=== PATIENT | female | born 2000 | race Caucasian/White ===

== ENCOUNTER 2018-01-11 20:18 | Emergency (ER) | payer MEDICAID ==
[~2018-01-11] VITALS: Ht 165.1 cm; Wt 65.9 kg
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
[2018-01-11 20:26] VITALS: BP 159/104
--- NOTE | 2018-01-11 20:52 | NUR ---
Patient ambulated to chair C with family. RN evaluating patient.
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
[2018-01-11 21:50] LABS: BARBITURATE, URINE NEG. ng/ml (NEG <=200); BENZODIAZEPINE, URINE POS. ng/mL (NEG <=200); CANNABINOID, URINE POS. ng/mL (NEG <=50); COCAINE, URINE NEG. ng/mL (NEG <=300); OPIATE, URINE NEG. ng/mL (NEG <=2000); PHENCYCLIDINE SCREEN,URINE NEG. ng/mL (NEG <=25)
--- NOTE | 2018-01-11 22:10 | NUR ---
Dr. Fermin evaluating patient.
[2018-01-11] MEDS ORDERED: LORazepam 1 MG TAB PO ONE (22:35)
[2018-01-11] MEDS ORDERED: HALOPERIDOL IM 5 MG/ML VIAL IM ONE (22:35)
[2018-01-11] MEDS ORDERED: diphenhydrAMINE 50 MG/ML VIAL IM ONE (22:35)
[2018-01-11 23:55] VITALS: BP 98/70
--- NOTE | 2018-01-11 23:55 | NUR ---
Patient discharged with v/s stable. Written and verbal after care instructions given and explained. Patient alert, oriented and verbalized understanding of instructions. Wheel Chair Assisted with to car. All questions addressed prior to discharge. ID band removed. Patient advised to follow up with PMD. Rx of ATIVAN 2 MG given. Patient educated on indication of medication including possible reaction and side effects. Opportunity to ask questions provided and answered.
== END 2018-01-11 23:55 | disposition home or self-care (01) ==
LOC: MED 20:18
DX: F15.159 Other stimulant abuse with stimulant-induced psychotic disorder, unspecified (principal); F41.9 Anxiety disorder, unspecified; G47.00 Insomnia, unspecified; E28.2 Polycystic ovarian syndrome; K21.9 Gastro-esophageal reflux disease without esophagitis; F19.10 Other psychoactive substance abuse, uncomplicated
CPT/HCPCS: 80305; 81025; 96372; 99284; J1200; J1630

== ENCOUNTER 2018-01-26 17:50 | Emergency (ER) | payer MEDICAID ==
[~2018-01-26] VITALS: Ht 165.1 cm; Wt 62.6 kg
[2018-01-26 17:55] VITALS: BP 112/72
--- NOTE | 2018-01-26 18:15 | NUR ---
Nicky hernandez in [facility] - 01/26/18 at 1815 by [email or web address] RT AT BEDSIDE FOR BREATHING TREATMENT
--- NOTE | 2018-01-26 18:33 | NUR ---
17Y/F c/o sob, generalized abd pain, abd pain, dizziness s/p using epipen today x 30 mins ago. pt sts allergic to diary. no visible swelling to face, lips, or tongue. rr are even and unlabored. full speech.PATIENT POSITIONED FOR COMFORT; HOB ELEVATED; BEDRAILS UP X 1; BED DOWN. ER MD MADE AWARE OF PT STATUS.
[2018-01-26] MEDS ORDERED: LORATADINE 10 MG TAB PO ONE (18:45)
[2018-01-26] MEDS ORDERED: FAMOTIDINE 20 MG TAB PO ONE (18:45)
[2018-01-26] MEDS ORDERED: ONDANSETRON 4 MG ODT PO ONE (18:45)
--- NOTE | 2018-01-26 19:10 | NUR ---
Pt report given to abiola garcia . Transfer of care at this time.
[2018-01-26 21:01] VITALS: BP 106/76
--- NOTE | 2018-01-26 21:02 | NUR ---
Patient discharged with v/s stable. Written and verbal after care instructions given and explained. Patient alert, oriented and verbalized understanding of instructions. Ambulatory with steady gait. All questions addressed prior to discharge. ID band removed. Patient advised to follow up with PMD. Rx of PEPCID 40MG AND CLARITIN 10MG given. Patient educated on indication of medication including possible reaction and side effects. Opportunity to ask questions provided and answered.Pt left without discharge paperwork.
== END 2018-01-26 21:01 | disposition home or self-care (01) ==
LOC: MED 17:50
DX: S00.83XA Contusion of other part of head, initial encounter (principal); S80.212A Abrasion, left knee, initial encounter; T44.5X5A Adverse effect of predominantly beta-adrenoreceptor agonists, initial encounter; J45.909 Unspecified asthma, uncomplicated; Z98.890 Other specified postprocedural states; W01.0XXA Fall on same level from slipping, tripping and stumbling without subsequent striking against object, initial encounter; Y93.89 Activity, other specified; Y99.8 Other external cause status; Y92.89 Other specified places as the place of occurrence of the external cause
CPT/HCPCS: 99284; S0119

== ENCOUNTER 2018-02-12 18:21 | Emergency (ER) | payer MEDICAID ==
[~2018-02-12] VITALS: Ht 165.1 cm; Wt 67.1 kg
[2018-02-12 18:29] VITALS: BP 113/72
--- NOTE | 2018-02-12 18:30 | NUR ---
Patient ambulated to bed 7. RN evaluating patient at bedside.
--- NOTE | 2018-02-12 18:39 | NUR ---
Dr. Lawrence evaluating patient at bedside.
--- NOTE | 2018-02-12 18:40 | NUR ---
18Y/F BIB MOM C/O SOB , PARESTHESIA, AND HOT SENSATION S/P BEE STING ABOUT 1730HRS TODAY. MOTHER ADMINISTERED EPI PEN TO LEFT THIGH PT C/O SOB 1800HRS TODAY. FULL CLEAR SPEECH, NO TONGUE/LIP SWELLING NOTED, NO RASH THROUGHOUT BUT HAS A SMALL BUG BITE APPEARING AREA TO EPIGASTRIC REGION. PATIENT STATES PAIN OF 6/10 AT THIS TIME; VSS; PATIENT POSITIONED FOR COMFORT; HOB ELEVATED; BEDRAILS UP X1; BED DOWN. ER MD MADE AWARE OF PT STATUS.
[2018-02-12] MEDS ORDERED: NACL 0.9% 1,000 ML IV ONE (18:45)
[2018-02-12] MEDS ORDERED: methylPREDNISolone SS 125 MG/2 ML VIAL IVP ONE (18:45)
[2018-02-12] MEDS ORDERED: FAMOTIDINE 20 MG/2 ML VIAL IVP ONE (18:45)
[2018-02-12] MEDS ORDERED: ALBUTEROL SULFATE/IPRATROPIU 3 ML SOL IH ONE (18:45)
[2018-02-12] MEDS ORDERED: diphenhydrAMINE 50 MG/ML VIAL IVP ONE (18:45)
--- NOTE | 2018-02-12 18:53 | NUR ---
Breathing treatment administered by respiratory therapist at bedside.
--- NOTE | 2018-02-12 19:14 | NUR ---
GAVE REPORT TO GARRETT CHANEY
[2018-02-12] MEDS ORDERED: KETOROLAC 30 MG/ML VIAL IVP ONE (20:10)
[2018-02-12 20:42] VITALS: BP 113/72
--- NOTE | 2018-02-12 20:42 | NUR ---
Patient discharged with v/s stable, without SOB or Dyspnea. Written and verbal after care instructions given and explained. Patient alert, oriented and verbalized understanding of instructions. Ambulatory with steady gait. All questions addressed prior to discharge. ID band removed. Patient advised to follow up with PMD. Rx of Epinephrine Injector, Albuterol INH, Famotidine, Atarax given. Patient educated on indication of medication including possible reaction and side effects. Opportunity to ask questions provided and answered.
== END 2018-02-12 20:42 | disposition home or self-care (01) ==
LOC: MED 18:21
DX: T63.441A Toxic effect of venom of bees, accidental (unintentional), initial encounter (principal); T78.2XXA Anaphylactic shock, unspecified, initial encounter; X58.XXXA Exposure to other specified factors, initial encounter; J45.909 Unspecified asthma, uncomplicated; F32.9 Major depressive disorder, single episode, unspecified; F41.9 Anxiety disorder, unspecified; Z91.011 Allergy to milk products; Z88.8 Allergy status to other drugs, medicaments and biological substances
CPT/HCPCS: 94640; 96361; 96374; 96375; 99284; J1200; J1885; J2930; J7030; J7620

== ENCOUNTER 2018-02-21 04:15 | Emergency (ER) | payer MEDICAID ==
[~2018-02-21] VITALS: Ht 165.1 cm; Wt 63.5 kg
[2018-02-21 04:18] VITALS: BP 127/77
[2018-02-21] MEDS ORDERED: HALOPERIDOL IM 5 MG/ML VIAL ONE (04:56)
[2018-02-21] MEDS: HALOPERIDOL IM 5 MG/ML VIAL IM ONE (04:58)
[2018-02-21 05:28] VITALS: BP 125/75
== END 2018-02-21 05:30 | disposition home or self-care (01) ==
LOC: MED 04:15
DX: G47.00 Insomnia, unspecified (principal); N12 Tubulo-interstitial nephritis, not specified as acute or chronic; F17.210 Nicotine dependence, cigarettes, uncomplicated; J45.909 Unspecified asthma, uncomplicated; F41.9 Anxiety disorder, unspecified; Z91.011 Allergy to milk products; Z88.8 Allergy status to other drugs, medicaments and biological substances
CPT/HCPCS: 81002; 81025; 96372; 99283; J1630

== ENCOUNTER 2018-03-07 16:36 | Emergency (ER) | payer MEDICAID ==
[~2018-03-07] VITALS: Ht 167.6 cm; Wt 72.6 kg
[2018-03-07 16:44] VITALS: BP 111/85
--- NOTE | 2018-03-07 16:52 | NUR ---
PT AMBULATES TO BED 9
--- NOTE | 2018-03-07 17:00 | NUR ---
pt. came into the ed w/ boyfriend w/ c/o NOT BEING ABLE TO SLEEP FOR 2 DAYS AND ANXIETY. PT. IS AAOX4, RR EVEN AND UNLABORED. PT STATES " I HAVE NOT BEEN ABLE TO SLEEP FOR 2 DAYS, THEY TOLD ME I MIGHT HAVE BIPOLAR DISORDER BUT NEEDED TO SEE MY PRIMARY". PT. DENIES V/D BUT DOES STATE SHE WAS NAUSEOUS YESTERDAY. PT. SEEMS ANXIOUS AND JITTERY BUT ABLE TO FOLLOW COMMANDS. ER MD NOTIFIED. WILL TYLERUE TO MONITOR
[2018-03-07 17:38] VITALS: BP 111/85
--- NOTE | 2018-03-07 17:38 | NUR ---
Patient discharged with v/s stable. Written and verbal after care instructions given and explained. Patient alert, oriented and verbalized understanding of instructions. Ambulatory with steady gait. All questions addressed prior to discharge. ID band removed. Patient advised to follow up with PMD. Rx of YENY given. Patient educated on indication of medication including possible reaction and side effects. Opportunity to ask questions provided and answered.
== END 2018-03-07 17:38 | disposition home or self-care (01) ==
LOC: MED 16:36
DX: G47.00 Insomnia, unspecified (principal); F41.9 Anxiety disorder, unspecified; J45.909 Unspecified asthma, uncomplicated; F17.210 Nicotine dependence, cigarettes, uncomplicated; Z88.8 Allergy status to other drugs, medicaments and biological substances; Z91.011 Allergy to milk products
CPT/HCPCS: 81002; 81025; 99283

== ENCOUNTER 2018-03-08 03:08 | Emergency (ER) | payer MEDICAID ==
[~2018-03-08] VITALS: Ht 165.1 cm; Wt 72.6 kg
[2018-03-08 03:12] VITALS: BP 118/60
--- NOTE | 2018-03-08 03:19 | NUR ---
TO BED # 5 AMBULATORY, REPORT GIVEN TO DARELL TUCKER.
--- NOTE | 2018-03-08 03:20 | NUR ---
ASSUMED CARE OF PT AT THIS TIME. C/O INSOMNIA AND ANXIETY. PT SEEN YESTERDAY FOR SAME COMPLAINT AND RX'D AMBIEN FOR SLEEP. AAOX4 WITH EVEN AND STEADY GAIT; PATIENT STATES PAIN OF 0/10 AT THIS TIME; VSS; PATIENT POSITIONED FOR COMFORT; HOB ELEVATED; BEDRAILS UP X2; BED DOWN. ER MD MADE AWARE OF PT STATUS. WILL CONTINUE TO MONITOR.
[2018-03-08] MEDS ORDERED: diphenhydrAMINE 50 MG/ML VIAL IM ONE (03:50)
[2018-03-08 04:25] VITALS: BP 110/64
--- NOTE | 2018-03-08 04:25 | NUR ---
Patient discharged with v/s stable. Written and verbal after care instructions given and explained. Patient verbalized understanding. Ambulatory with steady gait. All questions addressed prior to discharge. Advised to follow up with PMD.
== END 2018-03-08 04:25 | disposition home or self-care (01) ==
LOC: MED 03:08
DX: G47.00 Insomnia, unspecified (principal); J45.909 Unspecified asthma, uncomplicated; Z88.8 Allergy status to other drugs, medicaments and biological substances; Z91.011 Allergy to milk products
CPT/HCPCS: 96372; 99283; J1200

== ENCOUNTER 2018-03-08 21:02 | Emergency (ER) | payer MEDICAID ==
[~2018-03-08] VITALS: Ht 165.1 cm; Wt 74.8 kg
[2018-03-08 21:21] VITALS: BP 129/90
[2018-03-08 21:24] VITALS: BP 129/90
--- NOTE | 2018-03-08 21:24 | NUR ---
TO LOBBY A/W BED, JUANJOSE COBURN, FATOU NOTED
--- NOTE | 2018-03-08 23:25 | NUR ---
PATIENT CALLLED TO PUT ON BED, NO RESPONSE, TO CALL HER BACK AGAIN.
--- NOTE | 2018-03-08 23:30 | NUR ---
CALLED FOR THE SECOND TIME, NO RESPONSE TO CALL HER BACK AGAIN.
--- NOTE | 2018-03-08 23:35 | NUR ---
PATIENT CALLED FOR THE THIRD TIME NO RESPONSE.PATIENT LEFT WITHOUT BEING SEEN BY DR. FLETCHER.. NO FURTHER CARE PROVIDED FOR PATIENT.
== END 2018-03-08 23:35 | disposition left against medical advice (07) ==
LOC: MED 21:02
DX: F41.9 Anxiety disorder, unspecified (principal); Z53.21 Procedure and treatment not carried out due to patient leaving prior to being seen by health care provider

== ENCOUNTER 2018-03-17 09:34 | Emergency (ER) | payer MEDICAID ==
[~2018-03-17] VITALS: Ht 165.1 cm; Wt 61.2 kg
[2018-03-17 09:44] VITALS: BP 123/83
[2018-03-17] MEDS ORDERED: OLANZapine 5 MG TAB PO STA (11:40)
[2018-03-17 12:20] LABS: BASOPHILS # (AUTO) 0.1 K/uL (0.00-0.22); EOSINOPHILS # (AUTO) 0.1 K/uL (0-0.4); EOSINOPHILS % (AUTO) 1.1 % (0.0-4.0); HEMATOCRIT 46.5 % (36-48); HEMOGLOBIN 16.2 g/dL (12.0-16.0); LYMPHOCYTES # (AUTO) 1.8 K/uL (2.5-16.5); LYMPHOCYTES % (AUTO) 21.5 % (20.5-51.1); MEAN CORPUSCULAR HEMOGLOBIN 30 pg (27-31); MEAN CORPUSCULAR HGB CONC 35 g/dL (33-37); MEAN CORPUSCULAR VOLUME 84.9 fL (80-94); MONOCYTES # (AUTO) 0.4 K/uL (0.8-1.0); MONOCYTES % (AUTO) 5.3 % (1.7-9.3); NEUTROPHILS % (AUTO) 71.1 % (42.2-75.2); PLATELET COUNT (AUTO) 379 K/uL (140-450); RED BLOOD CELL COUNT(AUTO) 5.48 MIL/uL (4.20-5.40); WHITE BLOOD COUNT (AUTO) 8.5 K/uL (4.5-11.0)
[2018-03-17 12:37] LABS: ANION GAP 12.6 (8-16); CARBON DIOXIDE 30.3 mmol/L (21-32); CHLORIDE 104 mmol/L (98-107); CREATININE 0.9 mg/dL (0.6-1.3); GFR ARICAN-AMERICAN 103 mL/min (>90); GLUCOSE 87 mg/dL (74-106); POTASSIUM 3.9 mmol/L (3.5-5.1); SODIUM SERUM 143 mmol/L (136-145); UREA NITROGEN, BLOOD 10 mg/dL (7-18)
[2018-03-17 12:50] LABS: APPEARANCE,URINE CLEAR (CLEAR); BILIRUBIN,URINE NEGATIVE (NEGATIVE); BLOOD, URINE NEGATIVE (NEGATIVE); LEUKOCYTE ESTERASE ,URINE NEGATIVE (NEGATIVE); NITRITE, URINE NEGATIVE (NEGATIVE); PH,URINE 7.5 (5.0-9.0); UGLUCOSE NEGATIVE (NEGATIVE)
[2018-03-17 12:52] LABS: ALBUMIN 4.3 g/dL (3.4-5.0); ASPARTATE AMINOTRANSFERASE 14 U/L (15-37); FREE T4 (FREE THYROXINE) 0.89 ng/dL (0.76-1.46); THYROID STIMULATING HORMONE 1.38 uIU/mL (0.34-3.74); TOTAL BILIRUBIN 0.3 mg/dL (0.0-1.0)
[2018-03-17 12:54] LABS: ACETAMINOPHEN < 0.5 ug/ml (10-30); SALICYLATE < 2.8 mg/dL (2.8-20.0)
[2018-03-17 12:55] LABS: COLOR,URINE STRAW (YELLOW)
[2018-03-17 13:00] LABS: BARBITURATE, URINE NEG. ng/ml (NEG <=200); BENZODIAZEPINE, URINE POS. ng/mL (NEG <=200); CANNABINOID, URINE POS. ng/mL (NEG <=50); COCAINE, URINE NEG. ng/mL (NEG <=300); OPIATE, URINE NEG. ng/mL (NEG <=2000); PHENCYCLIDINE SCREEN,URINE NEG. ng/mL (NEG <=25)
[2018-03-17 14:35] VITALS: BP 120/74
== END 2018-03-17 14:35 | disposition home or self-care (01) ==
LOC: MED 09:34
DX: G47.00 Insomnia, unspecified (principal); F29 Unspecified psychosis not due to a substance or known physiological condition; F12.10 Cannabis abuse, uncomplicated; J45.909 Unspecified asthma, uncomplicated; F41.9 Anxiety disorder, unspecified; F32.9 Major depressive disorder, single episode, unspecified; F17.200 Nicotine dependence, unspecified, uncomplicated; Z88.8 Allergy status to other drugs, medicaments and biological substances; Z91.011 Allergy to milk products
CPT/HCPCS: 36415; 80053; 80305; 81003; 81025; 84439; 84443; 84479; 85025; 99284; G0480; G0482

== ENCOUNTER 2018-05-26 16:13 | Emergency (ER) | payer MEDICAID ==
[~2018-05-26] VITALS: Ht 165.1 cm; Wt 62.6 kg
[2018-05-26 16:17] VITALS: BP 148/71
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
[2018-05-26] MEDS ORDERED: ALBUTEROL 0.083% 2.5 MG/3 ML NEBU INH ONE (16:40)
[2018-05-26] MEDS ORDERED: predniSONE 20 MG TAB PO ONE (16:40)
[2018-05-26] MEDS ORDERED: ALBUTEROL SULFATE/IPRATROPIU 3 ML SOL IH ONE (16:40)
--- NOTE | 2018-05-26 16:53 | NUR ---
RT AT BEDSIDE Addendum: 05/26/18 at 1700 by MNCATHERINEKM ADMINISTERING BREATHING TREATMENT; TOLERATING WELL.
--- NOTE | 2018-05-26 17:50 | NUR ---
PT STATES SHE IS BREATHING EASIER AND IS "FEELING BETTER". THROAT STILL SWOLLEN ON LEFT SIDE UPON OBERVATION. RR 24, NO SOB, CLEAR LUNG SOUNDS. WILL CONTINUE TO MONITOR
--- NOTE | 2018-05-26 18:38 | NUR ---
SPOKE WITH DR KIMBLE ABOUT PATIENT WANTING TO BE DISCHARGED. HE STATED HE WOULD SEE THE PATIENT SHORTLY. TOLD THE PATIENT THAT THE DOCTOR WOULD BE IN TO SEE HER SHORTLY SHE STATED UNDERSTANDING.
--- NOTE | 2018-05-26 19:00 | NUR ---
DR MAKI AT BEDSIDE.
--- NOTE | 2018-05-26 19:10 | NUR ---
Pt report given to ELLE. Transfer of care at this time. PT STABLE AT THIS TIME.
--- NOTE | 2018-05-26 19:12 | NUR ---
PATIENT RESTING AT THIS TIME. NO SIGNS OF DISTRESS.
--- NOTE | 2018-05-26 19:20 | NUR ---
STREP SWAB COLLECTED AND SENT TO LAB.
--- NOTE | 2018-05-26 20:47 | NUR ---
Dr. Hernandez re-evaluating patient at bedside.
[2018-05-26 20:50] VITALS: BP 128/62
--- NOTE | 2018-05-26 20:50 | NUR ---
Patient discharged with v/s stable. Written and verbal after care instructions given and explained. Patient alert, oriented and verbalized understanding of instructions. Ambulatory with steady gait. All questions addressed prior to discharge. ID band removed. Patient advised to follow up with PMD. Rx of DIPHENHYDRAMINE 25MG, PREDNISONE 50MG, PEPCID 20MG, EPIPEN 2PACK, AMOXICILLIN 500MG given. Patient educated on indication of medication including possible reaction and side effects. Opportunity to ask questions provided and answered.
== END 2018-05-26 20:50 | disposition home or self-care (01) ==
LOC: MED 16:13
DX: T78.40XA Allergy, unspecified, initial encounter (principal); J02.9 Acute pharyngitis, unspecified; J45.909 Unspecified asthma, uncomplicated; F19.10 Other psychoactive substance abuse, uncomplicated; Z88.8 Allergy status to other drugs, medicaments and biological substances; X58.XXXA Exposure to other specified factors, initial encounter
CPT/HCPCS: 81002; 81025; 87081; 99283; J7512; J7613; J7620

== ENCOUNTER 2018-05-29 03:21 | Emergency (ER) | payer MEDICAID ==
[~2018-05-29] VITALS: Ht 165.1 cm; Wt 72.6 kg
[2018-05-29 03:28] VITALS: BP 138/90
--- NOTE | 2018-05-29 03:28 | NUR ---
TO BED # 7 AMBULATORY, REPORT GIVEN TO BERNADINE TUCKER
--- NOTE | 2018-05-29 03:35 | NUR ---
Dr. Stephenson evaluating patient at bedside.
--- NOTE | 2018-05-29 03:39 | NUR ---
18/F CAME IN ED WITH FRIEND, C/O INSOMNIA X2 NIGHTS. PT WAS RECENTLY EVALUATED IN ER FOR ALLERGIC REACTION AND STREP THROAT, WAS GIVEN RX PREDNISONE. PT REPORTS 8/10 DULL THROAT PAIN. LUNG SOUNDS CLEAR BL. AIRWAY PATENT, RR EVEN AND UNLABORED. PT REPORTS ANXIETY. REPORTS ASSOCIATED HALLUCINATIONS. HX ASTHMA, POS, ANXIETY, DEPRESSION, SMOKING, ALCOHOL/SUBSTANCE ABUSE. ER MD AT BEDSIDE TO EVALUATE PT.
[2018-05-29 03:48] VITALS: BP 138/90
== END 2018-05-29 03:48 | disposition home or self-care (01) ==
LOC: MED 03:21
DX: G47.00 Insomnia, unspecified (principal); J02.9 Acute pharyngitis, unspecified; J45.909 Unspecified asthma, uncomplicated; F17.200 Nicotine dependence, unspecified, uncomplicated; Z88.8 Allergy status to other drugs, medicaments and biological substances
CPT/HCPCS: 99283

== ENCOUNTER 2018-05-29 08:14 | Emergency (ER) | payer MEDICAID ==
[~2018-05-29] VITALS: Ht 165.1 cm; Wt 70.0 kg
[2018-05-29 08:25] VITALS: BP 144/98
--- NOTE | 2018-05-29 08:32 | NUR ---
Patient ambulated to bed 4 with family. RN evaluating patient at bedside.
--- NOTE | 2018-05-29 08:33 | NUR ---
REPORT GIVEN TO GARRETT LORENZ
--- NOTE | 2018-05-29 08:41 | NUR ---
Dr. Jarvis evaluating patient at bedside.
--- NOTE | 2018-05-29 08:41 | NUR ---
18YO F BIB FRIEND WITH C/O ANXIETY, VISUAL HALUCINATION "I'M SEEING CLEAR ALIGATORS, BITING SOUNDS, I'M SCARED", " I KNOW IT IS NOT REAL". ONLY SLEEPING 2 TO 3 HOURS THE LAST 2 DAYS; WAS SEEN EARLIER TODAY FOR INSOMNIA. RX WAS FILLED. AAOX4. RR EVEN AND UNLABORED, LS CLEAR THROUGHOUT. ABD SOFT AND NON TENDER. ER MD MADE AWARE. CALL LIGHT WITHIN REACH. PT BOSITIONED FOR COMFORT HX; ASTHMA, CHRONIC COLITIS RX; PREDNISONE
--- NOTE | 2018-05-29 08:52 | NUR ---
Patient being evaluated by physician at bedside.
[2018-05-29] MEDS ORDERED: HALOPERIDOL IM 5 MG/ML VIAL IM ONE (08:55)
--- NOTE | 2018-05-29 09:30 | NUR ---
PT DENIES ANY HALLUSINATIONS AT THIS TIME. PT RESTING WITH EYES CLOSED IN NO APPEARENT DISTRESS
[2018-05-29 10:12] VITALS: BP 140/86
--- NOTE | 2018-05-29 10:12 | NUR ---
Patient discharged with v/s stable. Written and verbal after care instructions given and explained. Patient verbalized understanding. Wheel Chair Assisted with to car. All questions addressed prior to discharge. Advised to follow up with PMD.
== END 2018-05-29 10:12 | disposition home or self-care (01) ==
LOC: MED 08:14
DX: F23 Brief psychotic disorder (principal); G47.00 Insomnia, unspecified; F32.9 Major depressive disorder, single episode, unspecified; F41.9 Anxiety disorder, unspecified; J45.909 Unspecified asthma, uncomplicated; F17.200 Nicotine dependence, unspecified, uncomplicated; Z88.8 Allergy status to other drugs, medicaments and biological substances
CPT/HCPCS: 96372; 99284; J1630

== ENCOUNTER 2018-06-23 04:53 | Emergency (ER) | payer MEDICAID ==
[~2018-06-23] VITALS: Ht 165.1 cm; Wt 70.3 kg
[2018-06-23 04:58] VITALS: BP 148/90
--- NOTE | 2018-06-23 04:58 | NUR ---
TO BED # 7 AMBULATORY, REPORT GIVEN TO JOSEPH TUCKER
--- NOTE | 2018-06-23 05:06 | NUR ---
18 Y/O F W/C/O INSOMNIA X 6 HOURS PER PT. PT DENIES N/V/D; SKIN IS INTACT, PINK/WARM/DRY; AAOX4, PERRL, WITH EVEN AND STEADY GAIT; LUNGS CLEAR BL, BREATHING UNLABORED; HR EVEN AND REGULAR, BL PERIPHERAL PULSES PRESENT; BS ACTIVE X4, NO TENDERNESS TO PALPATION, NO HEPATOSPLENOMEGALLY PALPATED, RESONANT TO PERCUSSION; PT DENIES ANY FEVER, CP, SOB, AT THIS TIME; PT STATES 0/10 PAIN AT THIS TIME; VSS; PATIENT POSITIONED FOR COMFORT; HOB ELEVATED; BEDRAILS UP X2; BED DOWN.
--- NOTE | 2018-06-23 05:07 | NUR ---
DR. DAILEY AT BEDSIDE EVALUATING
[2018-06-23] MEDS ORDERED: HALOPERIDOL IM 5 MG/ML VIAL IM ONE (05:10)
--- NOTE | 2018-06-23 05:45 | NUR ---
PT RESTING COMFORTABLY IN BED WITH BOYFRIEND AT BEDSIDE
[2018-06-23 06:18] VITALS: BP 15/85
== END 2018-06-23 06:19 | disposition home or self-care (01) ==
LOC: MED 04:53
DX: G47.00 Insomnia, unspecified (principal); R50.9 Fever, unspecified; R11.0 Nausea; F12.10 Cannabis abuse, uncomplicated; J45.909 Unspecified asthma, uncomplicated; Z88.8 Allergy status to other drugs, medicaments and biological substances
CPT/HCPCS: 96372; 99283; J1630

== ENCOUNTER 2018-08-06 12:07 | Emergency (ER) | payer MEDICAID ==
[~2018-08-06] VITALS: Ht 165.1 cm; Wt 62.6 kg
[2018-08-06 12:16] VITALS: BP 140/90
[2018-08-06] MEDS: diphenhydrAMINE 50 MG/ML VIAL IM ONE (15:15)
[2018-08-06] MEDS: HALOPERIDOL IM 5 MG/ML VIAL IM ONE (15:16)
[2018-08-06 15:19] LABS: BASOPHILS # (AUTO) 0.1 K/uL (0.00-0.22); BASOPHILS % (AUTO) 1.3 % (0.0-2.0); EOSINOPHILS # (AUTO) 0.1 K/uL (0-0.4); EOSINOPHILS % (AUTO) 0.6 % (0.0-4.0); HEMATOCRIT 45.1 % (36-48); HEMOGLOBIN 15.2 g/dL (12.0-16.0); LYMPHOCYTES # (AUTO) 2.1 K/uL (2.5-16.5); LYMPHOCYTES % (AUTO) 23.2 % (20.5-51.1); MEAN CORPUSCULAR HEMOGLOBIN 29 pg (27-31); MEAN CORPUSCULAR HGB CONC 34 g/dL (33-37); MEAN CORPUSCULAR VOLUME 86.5 fL (80-94); MONOCYTES # (AUTO) 0.7 K/uL (0.8-1.0); MONOCYTES % (AUTO) 7.5 % (1.7-9.3); NEUTROPHILS % (AUTO) 67.4 % (42.2-75.2); PLATELET COUNT (AUTO) 353 K/uL (140-450); RED BLOOD CELL COUNT(AUTO) 5.22 MIL/uL (4.20-5.40); RED CELL DISTRIBUTION WIDTH 14.6 % (11.6-13.7)
[2018-08-06 15:58] LABS: BARBITURATE, URINE NEG. ng/ml (NEG <=200); BENZODIAZEPINE, URINE POS. ng/mL (NEG <=200); CANNABINOID, URINE POS. ng/mL (NEG <=50); COCAINE, URINE NEG. ng/mL (NEG <=300); OPIATE, URINE NEG. ng/mL (NEG <=2000); PHENCYCLIDINE SCREEN,URINE NEG. ng/mL (NEG <=25)
[2018-08-06 16:01] LABS: ANION GAP 15.9 (8-16); CARBON DIOXIDE 26.1 mmol/L (21-32); CHLORIDE 103 mmol/L (98-107); GFR ARICAN-AMERICAN 91 mL/min (>90); GLUCOSE 84 mg/dL (74-106); SODIUM SERUM 141 mmol/L (136-145); UREA NITROGEN, BLOOD 10 mg/dL (7-18)
[2018-08-06 16:06] LABS: ALBUMIN 4.2 g/dL (3.4-5.0); ASPARTATE AMINOTRANSFERASE 17 U/L (15-37); TOTAL BILIRUBIN 0.7 mg/dL (0.0-1.0)
[2018-08-06 16:07] LABS: SALICYLATE < 2.8 mg/dL (2.8-20.0)
[2018-08-06 16:08] LABS: ACETAMINOPHEN < 0.5 ug/ml (10-30)
[2018-08-06 16:15] LABS: APPEARANCE,URINE CLEAR (CLEAR)
[2018-08-06 16:16] LABS: BILIRUBIN,URINE NEGATIVE (NEGATIVE); BLOOD, URINE NEGATIVE (NEGATIVE); COLOR,URINE YELLOW (YELLOW); NITRITE, URINE NEGATIVE (NEGATIVE); PH,URINE 7.5 (5.0-9.0); UGLUCOSE NEGATIVE (NEGATIVE)
[2018-08-06 16:17] LABS: LEUKOCYTE ESTERASE ,URINE 1+ (NEGATIVE)
[2018-08-06 16:32] LABS: RBC,URINE 0-5 (RARE) /HPF (0-5)
[2018-08-06 19:00] VITALS: BP 112/61
== END 2018-08-06 19:00 | disposition home or self-care (01) ==
LOC: MED 12:07
DX: F25.0 Schizoaffective disorder, bipolar type (principal); G47.00 Insomnia, unspecified; J45.909 Unspecified asthma, uncomplicated; Z88.8 Allergy status to other drugs, medicaments and biological substances
CPT/HCPCS: 36415; 80053; 80305; 81001; 81025; 85025; 87086; 87186; 96372; 99284; G0480; G0482; J1200; J1630

== ENCOUNTER 2018-08-18 19:23 | Emergency (ER) | payer MEDICAID ==
[~2018-08-18] VITALS: Ht 165.1 cm; Wt 65.8 kg
[2018-08-18 19:25] VITALS: BP 117/88
[2018-08-18] MEDS ORDERED: FAMOTIDINE 20 MG TAB PO ONE (19:40)
[2018-08-18 20:54] VITALS: BP 120/87
== END 2018-08-18 20:54 | disposition home or self-care (01) ==
LOC: MED 19:23
DX: T78.2XXA Anaphylactic shock, unspecified, initial encounter (principal); J45.909 Unspecified asthma, uncomplicated; F17.210 Nicotine dependence, cigarettes, uncomplicated; Z88.8 Allergy status to other drugs, medicaments and biological substances
CPT/HCPCS: 99282; 99283

== ENCOUNTER 2018-08-31 19:24 | Emergency (ER) | payer MEDICAID ==
[~2018-08-31] VITALS: Ht 165.1 cm; Wt 62.6 kg
[2018-08-31 19:31] VITALS: BP 125/80
[2018-08-31] MEDS ORDERED: diphenhydrAMINE 50 MG/ML VIAL IM ONE (19:55)
[2018-08-31 20:51] LABS: BARBITURATE, URINE NEG. ng/ml (NEG <=200); BENZODIAZEPINE, URINE POS. ng/mL (NEG <=200); CANNABINOID, URINE POS. ng/mL (NEG <=50); COCAINE, URINE NEG. ng/mL (NEG <=300); OPIATE, URINE NEG. ng/mL (NEG <=2000); PHENCYCLIDINE SCREEN,URINE NEG. ng/mL (NEG <=25)
[2018-08-31 20:52] LABS: APPEARANCE,URINE CLEAR (CLEAR); BILIRUBIN,URINE NEGATIVE (NEGATIVE); BLOOD, URINE TRACE-I (NEGATIVE); COLOR,URINE YELLOW (YELLOW); LEUKOCYTE ESTERASE ,URINE TRACE (NEGATIVE); NITRITE, URINE POSITIVE (NEGATIVE); UGLUCOSE NEGATIVE (NEGATIVE)
[2018-08-31 21:07] LABS: RBC,URINE 0-5 (RARE) /HPF (0-5); WBC,URINE 0-5 (RARE) /HPF (0-5)
[2018-08-31] MEDS ORDERED: HALOPERIDOL IM 5 MG/ML VIAL IM ONE (21:30)
[2018-08-31 21:55] VITALS: BP 153/106
== END 2018-08-31 21:55 | disposition home or self-care (01) ==
LOC: MED 19:24
DX: G47.00 Insomnia, unspecified (principal); F19.10 Other psychoactive substance abuse, uncomplicated; J45.909 Unspecified asthma, uncomplicated; F12.10 Cannabis abuse, uncomplicated; Z88.8 Allergy status to other drugs, medicaments and biological substances
CPT/HCPCS: 80305; 81001; 81025; 87086; 96372; 99283; J1200; J1630

== ENCOUNTER 2018-10-08 22:18 | Emergency (ER) | payer MEDICAID ==
[~2018-10-08] VITALS: Ht 165.1 cm; Wt 71.7 kg
[2018-10-08 22:25] VITALS: BP 126/77
--- NOTE | 2018-10-08 22:33 | NUR ---
PT AMBULATED TO BED 12 WITH VSS.
--- NOTE | 2018-10-08 23:00 | NUR ---
PT BIB SELF FOR ALLERGIC REACTION. PT REPORTS FEELING SOB. RR SYMMETRICAL, NON-LABORED, BREATH SOUNDS CLEAR THROUGHOUT, O2 SAT AT 99%. PT REPORTS ALLERGY TO DAIRRY AND STATES THAT SHE MIGHT HAVE EATIN FOOD WITH DAIRY RODUCTS. NO ANGIOEDEMA OR NO HIVES PRESENT. VSS. ER MD TO SEE PT. SAFETY PRECAUTIONS IN PLACE. WILL CONTINUE TO MONITOR. MED HX: JOSEPH
[2018-10-08] MEDS ORDERED: ALBUTEROL 0.083% 2.5 MG/3 ML NEBU INH ONE (23:10)
[2018-10-08] MEDS ORDERED: ALBUTEROL SULFATE/IPRATROPIU 3 ML SOL IH ONE (23:10)
[2018-10-08] MEDS ORDERED: predniSONE 20 MG TAB PO ONE (23:10)
--- NOTE | 2018-10-08 23:18 | NUR ---
RT GIVING BREATHING TX AT THSI TIME.
--- NOTE | 2018-10-08 23:56 | NUR ---
Patient discharged with v/s stable. Written and verbal after care instructions given and explained. Patient alert, oriented and verbalized understanding of instructions. Ambulatory with steady gait. All questions addressed prior to discharge. ID band removed. Patient advised to follow up with PMD. Rx of prednisone and epipen given. Patient educated on indication of medication including possible reaction and side effects. Opportunity to ask questions provided and answered.
[2018-10-09 00:05] VITALS: BP 108/62
== END 2018-10-08 23:56 | disposition home or self-care (01) ==
LOC: MED 22:18
DX: T78.40XA Allergy, unspecified, initial encounter (principal); F17.200 Nicotine dependence, unspecified, uncomplicated; J45.909 Unspecified asthma, uncomplicated; Z98.890 Other specified postprocedural states; Z88.8 Allergy status to other drugs, medicaments and biological substances; X58.XXXA Exposure to other specified factors, initial encounter
CPT/HCPCS: 94640; 99283; J7512; J7613; J7620

== ENCOUNTER 2018-11-01 22:27 | Emergency (ER) | payer MEDICAID ==
[~2018-11-01] VITALS: Ht 165.1 cm; Wt 63.5 kg
[2018-11-01 22:29] VITALS: BP 116/55
--- NOTE | 2018-11-01 22:33 | NUR ---
PT AMBULATORY TO ER LOBBY W/ STEADY GAIT IN STABLE CONDITION.
--- NOTE | 2018-11-01 23:21 | NUR ---
PT TAKEN TO BED 9
--- NOTE | 2018-11-01 23:51 | NUR ---
PT PRESENTS TO ED FOR EVALUATION OF ALLERGIC REACTION. PT STATED HAD DIARY PRODUCT 2 HRS, STATED HAVING HARD TIME BREATHING AFTER. ALSO STATED RUN OUT OF EPI PEN AND BENADRYL. AAO X4, GCS 15, AMBULATORY WITH STEADY GAIT. RESPITIONS EVEN AND UNLABORED, BL LUNG CELAR. SKIN WARM/PINK/DRY, +PMAC. VSS, NO ACUTE DSIRTESS AT THIS TIME. WILL CONTINEU TO MONITOR
[2018-11-02] MEDS ORDERED: EPINEPHrine 1:1000 - 1 MG/ML AMP SUBQ ONE (01:35)
[2018-11-02] MEDS ORDERED: diphenhydrAMINE 50 MG/ML VIAL IM ONE (01:35)
--- NOTE | 2018-11-02 02:32 | NUR ---
Patient discharged with v/s stable. Written and verbal after care instructions given and explained. Patient alert, oriented and verbalized understanding of instructions. Ambulatory with steady gait. All questions addressed prior to discharge. ID band removed. Patient advised to follow up with PMD. Rx of BENEDRYL 25 MG, EPIPEN 2-PACK OUTO-INJECTOR 03.MG/0.3 ML given. Patient educated on indication of medication including possible reaction and side effects. Opportunity to ask questions provided and answered.
[2018-11-02 02:39] VITALS: BP 109/68
== END 2018-11-02 02:32 | disposition home or self-care (01) ==
LOC: MED 22:27
DX: T78.1XXA Other adverse food reactions, not elsewhere classified, initial encounter (principal); L53.9 Erythematous condition, unspecified; J45.909 Unspecified asthma, uncomplicated; Z88.8 Allergy status to other drugs, medicaments and biological substances; Z91.011 Allergy to milk products; X58.XXXA Exposure to other specified factors, initial encounter
CPT/HCPCS: 96372; 99283; J0171; J1200

== ENCOUNTER 2018-11-17 16:41 | Emergency (ER) | payer MEDICAID ==
[~2018-11-17] VITALS: Ht 165.1 cm; Wt 71.7 kg
[2018-11-17 17:22] VITALS: BP 124/89
--- NOTE | 2018-11-17 18:25 | NUR ---
AAO x4 pt no acute distress using her phone, no sob or accessory muscle use noted, speaks full sentences updaed for bed [facility].
--- NOTE | 2018-11-17 18:58 | NUR ---
PATIENT AMBULATED TO ER BED 12
[2018-11-17] MEDS ORDERED: methylPREDNISolone SS 125 MG/2 ML VIAL IVP ONE (19:20)
[2018-11-17] MEDS ORDERED: NACL 0.9% 1,000 ML IV ONE (19:20)
[2018-11-17] MEDS ORDERED: FAMOTIDINE 20 MG/2 ML VIAL IVP ONE (19:20)
--- NOTE | 2018-11-17 19:23 | NUR ---
Bib family with c/o allergic reaction and sob from unknown food intake. Was seen on 11/01/18 for the same s/s d/t drinking milk which she is allergic. lung sounds cta, SPO2 97% on room air. - swollen tounge, speaking full sentences, no acute distress. hx; asthma rx; ventolin, symbicort
--- NOTE | 2018-11-17 20:32 | NUR ---
PT VERBALIZED FEELING BETTER THAN BEFORE. NO SOB OR ACUTE DISTRESS NOTED. DENIES PAIN. NO C/O ITCHYNESS. HAS SWOLLEN TONGUE.
--- NOTE | 2018-11-17 21:16 | NUR ---
Patient discharged with v/s stable. Written and verbal after care instructions given and explained. Patient alert, oriented and verbalized understanding of instructions. Ambulatory with steady gait. All questions addressed prior to discharge. ID band removed. Patient advised to follow up with PMD. Rx of EPIPEN, PREDNISONE, AND PEPCID given. Patient educated on indication of medication including possible reaction and side effects. Opportunity to ask questions provided and answered.
[2018-11-17 21:18] VITALS: BP 129/83
== END 2018-11-17 21:16 | disposition home or self-care (01) ==
LOC: MED 16:41
DX: T78.40XA Allergy, unspecified, initial encounter (principal); J45.909 Unspecified asthma, uncomplicated; Z88.8 Allergy status to other drugs, medicaments and biological substances; X58.XXXA Exposure to other specified factors, initial encounter
CPT/HCPCS: 96374; 96375; 99283; J2930; J3490; J7030

== ENCOUNTER 2018-12-29 16:52 | Emergency (ER) | payer MEDICAID ==
[~2018-12-29] VITALS: Ht 165.1 cm; Wt 71.7 kg
--- NOTE | 2018-12-29 16:57 | NUR ---
BIB SELF. AAO X 4. C/O ANXIETY, PT STATES SHE TOOK AN UNPRESCRIBED XANAX LAST NIGHT AND THIS MORNING WITH NO RELIEF. PT IS RESTLESS AND TEARFUL. PT WAS RECENTLY PRESCRIBED FLOUXETINE FOR BIPOLAR DISORDER II, BUT HAS NOT STARTED YET. NO SOB NOTED. HOB UP. BED SIDE RAILS UP X1. ON LOW BED POSITION, LOCKED. ER MADE AWARE OF PT STATUS.
--- NOTE | 2018-12-29 19:12 | NUR ---
Pt report given to GARRETT LOGAN AND GARRETT KINNEY. Transfer of care at this time.
--- NOTE | 2018-12-29 19:13 | NUR ---
ASSUMED CARE OF PT FROM GARRETT BENITES
[2018-12-29] MEDS ORDERED: diphenhydrAMINE 50 MG/ML VIAL IM ONE (19:40)
[2018-12-29] MEDS ORDERED: ALPRAZolam 0.5 MG TAB PO ONE (19:40)
[2018-12-29 20:14] VITALS: BP 122/81
== END 2018-12-29 20:16 | disposition home or self-care (01) ==
LOC: MED 16:52
DX: F41.9 Anxiety disorder, unspecified (principal); R42 Dizziness and giddiness; R10.9 Unspecified abdominal pain; J45.909 Unspecified asthma, uncomplicated; Z88.8 Allergy status to other drugs, medicaments and biological substances
CPT/HCPCS: 96372; 99284; J1200

== ENCOUNTER 2019-01-29 22:16 | Emergency (ER) | payer MEDICAID ==
[~2019-01-29] VITALS: Ht 165.1 cm; Wt 67.1 kg
[2019-01-29 22:24] VITALS: BP 128/89
--- NOTE | 2019-01-29 22:24 | NUR ---
TO BED # 07 AMBULATORY
[2019-01-29 22:28] VITALS: BP 128/89
--- NOTE | 2019-01-29 22:30 | NUR ---
X-Ray at bedside.
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
--- NOTE | 2019-01-29 22:45 | NUR ---
PROVIDED PT WITH 2 LPM O2 VIA NC FOR COMFORT PER DR. MCGOWAN.
--- NOTE | 2019-01-29 23:57 | NUR ---
RAD AT BEDSIDE
--- NOTE | 2019-01-30 00:14 | NUR ---
Dr. Carpenter evaluating patient at bedside.
== END 2019-01-30 00:30 | disposition home or self-care (01) ==
LOC: MED 22:16
DX: F41.9 Anxiety disorder, unspecified (principal); K59.00 Constipation, unspecified; J45.909 Unspecified asthma, uncomplicated; Z88.8 Allergy status to other drugs, medicaments and biological substances
CPT/HCPCS: 71045; 74018; 99283; Q0092

== ENCOUNTER 2019-04-21 18:32 | Emergency (ER) | payer MEDICAID ==
[~2019-04-21] VITALS: Ht 175.3 cm; Wt 72.6 kg
[2019-04-21 18:52] VITALS: BP 124/84
[2019-04-21 19:10] VITALS: BP 124/84
--- NOTE | 2019-04-21 19:10 | NUR ---
Note ilianalynn in EDM - 04/21/19 at 1919 by MED PT CAME IN FOR MEDICATION REFILL CLONAZEPAM 1MG TAB BID. PT STATES "MY COUSIN STOLE MY MEDICATION AND I FEEL LIKE IM HAVING WITHDRAWALS" PT STATES SHE HASN'T TAKEN MEDICATION IN 3 DAYS. MED HX: ANXIETY, DEPRESSION, ASTHMA. SAFETY MEASURES IN PLACE. WAITING FOR ERMD TO EVALUATE PT.
--- NOTE | 2019-04-21 19:20 | NUR ---
PT CAME IN FOR MEDICATION REFILL CLONAZEPAM 1MG TAB BID. PT STATES "MY COUSIN STOLE MY MEDICATION AND I FEEL LIKE IM HAVING WITHDRAWALS" PT STATES SHE HASN'T TAKEN MEDICATION IN 3 DAYS. MED HX: ANXIETY, DEPRESSION, ASTHMA. SAFETY MEASURES IN PLACE. WAITING FOR ERMD TO EVALUATE PT
[2019-04-21] MEDS ORDERED: clonazePAM 0.5 MG TAB PO ONE (20:50)
--- NOTE | 2019-04-21 21:20 | NUR ---
PATIENT ELOPED FROM FACILITY. DISCHARGE INSTRUCTIONS NOT GIVEN TO PATIENT. DR. ACOSTA NOTIFIED.
== END 2019-04-21 21:21 | disposition left against medical advice (07) ==
LOC: MED 18:32
DX: F41.9 Anxiety disorder, unspecified (principal); F32.9 Major depressive disorder, single episode, unspecified; J45.909 Unspecified asthma, uncomplicated; Z91.011 Allergy to milk products; Z88.8 Allergy status to other drugs, medicaments and biological substances; Z76.0 Encounter for issue of repeat prescription
CPT/HCPCS: 71046; 81025; 93005; 99284

== ENCOUNTER 2019-05-27 05:26 | Emergency (ER) | payer MEDICAID ==
[~2019-05-27] VITALS: Ht 165.1 cm; Wt 68.9 kg
[2019-05-27 05:37] VITALS: BP 125/90
--- NOTE | 2019-05-27 05:37 | NUR ---
TO BED # 07 AMBULATORY
--- NOTE | 2019-05-27 05:56 | NUR ---
19 Y/O FEMALE PRESENTS TO ED, C/O INSOMNIA X2 DAYS. PT STATES SHE STARTED HEARING VOICES DUE TO LACK OF SLEEP, DENIES ANY COMMAND HALLUCINATIONS. PT TOOK TRAZODONE AND BENADRYL FOR SLEEP BUT WAS INEFFECTIVE. PT HAS HX OF DEPRESSION AND ANXIETY, PT ENDORSED BEING NONMED COMPLIANT. PT ENDORSED TAKING ECSTASY LAST TUESDAY HAND UMBRELLA TIPPER, DENIES ANY OTHER DRUG USE. PT VSS. ERMD AWARE.
[2019-05-27] MEDS ORDERED: HALOPERIDOL IM 5 MG/ML VIAL IM ONE (07:15)
[2019-05-27 07:45] VITALS: BP 118/76
--- NOTE | 2019-05-27 07:45 | NUR ---
Patient discharged with v/s stable. Written and verbal after care instructions given and explained. Patient verbalized understanding. All questions addressed prior to discharge. Advised to follow up with PMD.
== END 2019-05-27 07:45 | disposition home or self-care (01) ==
LOC: MED 05:26
DX: G47.9 Sleep disorder, unspecified (principal); F19.10 Other psychoactive substance abuse, uncomplicated; J45.909 Unspecified asthma, uncomplicated; F31.9 Bipolar disorder, unspecified; F41.9 Anxiety disorder, unspecified; Z91.011 Allergy to milk products; Z88.8 Allergy status to other drugs, medicaments and biological substances
CPT/HCPCS: 93005; 99283; J1630

== ENCOUNTER 2019-05-31 16:22 | Emergency (ER) | payer MEDICAID ==
[~2019-05-31] VITALS: Ht 165.1 cm; Wt 71.3 kg
[2019-05-31 17:06] VITALS: BP 106/52
--- NOTE | 2019-05-31 17:12 | NUR ---
PT AMBULATED BACK TO LOBBY WITH STEADY GAIT.
--- NOTE | 2019-05-31 20:12 | NUR ---
PT AMBULATED TO BED 9
--- NOTE | 2019-05-31 20:25 | NUR ---
19 Y/O FEMALE PRESENTS TO ED, C/O BURNING SENSATION ON LEFT EYE. PT STATES SHE HAD BLEACH SPLATTER ON HER L EYE. C/O BURNING AND DOUBLE VISTION. SEES 20/25 ON SNELLEN CHART. PT STATES SHE HAS 20/20 VISION ON BOTH EYES. NO DISCHARGE/DRAINAGE ON EYES, PERRLA. PT VSS. ERMD AWARE. WILL CONTINUE TO MONITOR.
[2019-05-31] MEDS ORDERED: TETRACAINE HCL/PF 0.5% OPTH 4 ML BTL OP ONE (20:30)
[2019-05-31] MEDS ORDERED: FLUORESCEIN OPTH STRIP 0.6 MG OP ONE (20:30)
--- NOTE | 2019-05-31 20:58 | NUR ---
PT L EYE IRRIGATED WITH 500CC OF NORMAL SALINE. PT STATED SOME RELIEF AND SOME BURNING
[2019-05-31 21:09] VITALS: BP 108/61
--- NOTE | 2019-05-31 21:09 | NUR ---
PT DISCHARGED WITH PAPERWORK. RX MOTRIN FOR PAIN. EDUCATED PT REGARDING MEDICATION AND S/E. EDUCATED PT REGARDING D/C DIAGNOSIS. PT VERBALIZED UNDERSTANDING OF TEACHING. TOLD PT TO FOLLOW UP WITH PCP AND WHEN TO RETURN TO ED. PT VSS. PT DENIES ANY PAIN ON EYE. ALL QUESTIONS ANSWERED.
== END 2019-05-31 21:09 | disposition home or self-care (01) ==
LOC: MED 16:22
DX: H57.12 Ocular pain, left eye (principal); J45.909 Unspecified asthma, uncomplicated; F41.9 Anxiety disorder, unspecified; F32.9 Major depressive disorder, single episode, unspecified; F15.90 Other stimulant use, unspecified, uncomplicated; Z98.890 Other specified postprocedural states; Z88.8 Allergy status to other drugs, medicaments and biological substances; X58.XXXA Exposure to other specified factors, initial encounter; Y93.89 Activity, other specified; Y92.89 Other specified places as the place of occurrence of the external cause; Y99.8 Other external cause status
CPT/HCPCS: 99283

== ENCOUNTER 2019-07-01 19:13 | Emergency (ER) | payer MEDICAID ==
[~2019-07-01] VITALS: Ht 165.1 cm; Wt 66.2 kg
[2019-07-01 19:25] VITALS: BP 120/60
[2019-07-01] MEDS ORDERED: TETRACAINE HCL/PF 0.5% OPTH 4 ML BTL OP ONE (20:10)
[2019-07-01 20:56] VITALS: BP 120/60
== END 2019-07-01 20:56 | disposition home or self-care (01) ==
LOC: MED 19:13
DX: T54.91XA Toxic effect of unspecified corrosive substance, accidental (unintentional), initial encounter (principal); H10.212 Acute toxic conjunctivitis, left eye; Y92.89 Other specified places as the place of occurrence of the external cause
CPT/HCPCS: 99283

== ENCOUNTER 2019-07-10 21:53 | Emergency (ER) | payer MEDICAID ==
[~2019-07-10] VITALS: Ht 165.1 cm; Wt 64.4 kg
[2019-07-10 22:09] VITALS: BP 117/77
--- NOTE | 2019-07-10 22:15 | NUR ---
PATIENT PRESENTS TO ED C/O ALLERGIC REACTION. STATES SHE USED EPI PEN AND BENEDRYL AT 2130 FOR ALLERGIC REACTION TO MIILK. STATES SHE HAS HEADACHE AND BLURRY VISION AT THIS TIME WITH CHEST DISCOMFORT. PAIN 7/10 ACHE. AWAKE ALERT A/OX4. ABLE TO AMBULATE. STEADY GAIT. VSS. 100% O2 SAT. PAST MED HX- ASTHMA, ANXIETY, COLITIS RX- PROZAC, TYLENOL, AMOXICILLIN, CLONZIPINE ALLERGIES- MILK . DENIES N/V/D; SKIN IS PINK/WARM/DRY; AAOX4 WITH EVEN AND STEADY GAIT; LUNGS CLEAR BL; HR EVEN AND REGULAR; PT DENIES ANY FEVER, CP, SOB, OR COUGH AT THIS TIME; VSS; PATIENT POSITIONED FOR COMFORT; HOB ELEVATED; BEDRAILS UP X2; BED DOWN. ER MD MADE AWARE OF PT STATUS.
--- NOTE | 2019-07-10 22:52 | NUR ---
PT TO ER BED 11
--- NOTE | 2019-07-11 00:10 | NUR ---
NO CHANGES FROM PREVIOUS ASSESSMENT. PT APPEARS TO BE IN NO DISTRESS. VSS. WILL CONTNIUE TO MONITOR.
[2019-07-11] MEDS ORDERED: ALBUTEROL SULFATE/IPRATROPIU 3 ML SOL IH ONE (00:45)
[2019-07-11] MEDS ORDERED: predniSONE 20 MG TAB PO ONE (00:45)
[2019-07-11] MEDS ORDERED: ALBUTEROL 0.083% 2.5 MG/3 ML NEBU INH ONE (00:45)
--- NOTE | 2019-07-11 00:45 | NUR ---
RT AT BEDSIDE FOR TX.
--- NOTE | 2019-07-11 01:30 | NUR ---
PT RESTING COMFORTABLY IN BED. NO CHANGES FROM PREVIOUS ASSESSMENT. WILL CONTINUE TO MONITOR. WAITING FOR DISPO.
--- NOTE | 2019-07-11 01:55 | NUR ---
Patient discharged with v/s stable. Written and verbal after care instructions given and explained. Patient alert, oriented and verbalized understanding of instructions. Ambulatory with steady gait. All questions addressed prior to discharge. ID band removed. Patient advised to follow up with PMD. Rx of EPIPEN given. Patient educated on indication of medication including possible reaction and side effects. Opportunity to ask questions provided and answered.
[2019-07-11 01:56] VITALS: BP 116/74
== END 2019-07-11 01:55 | disposition home or self-care (01) ==
LOC: MED 21:53
DX: T78.40XA Allergy, unspecified, initial encounter (principal); R06.02 Shortness of breath; R07.89 Other chest pain; J45.909 Unspecified asthma, uncomplicated; Z98.890 Other specified postprocedural states; Z88.8 Allergy status to other drugs, medicaments and biological substances; X58.XXXA Exposure to other specified factors, initial encounter
CPT/HCPCS: 94640; 99283; J7512; J7613; J7620

== ENCOUNTER 2019-08-17 15:53 | Emergency (ER) | payer MEDICAID ==
[~2019-08-17] VITALS: Ht 165.1 cm; Wt 64.0 kg
[2019-08-17 16:15] VITALS: BP 139/95
--- NOTE | 2019-08-17 16:20 | NUR ---
PT AMBULATED TO ER 09
--- NOTE | 2019-08-17 16:32 | NUR ---
PT C/O LEFT EYE BURNING/PRESSURE PAIN S/P GETTING BLEECH IN EYE AT WORK APROXIMATELY 1.5 HOURS AGO. PT REPORTS HAVING BLURRED VISION AND PHOTOPHOBIA IN THE LT EYE, PT DENIES USED CONTACTS OR GLASSESS. PATIENT STATES PAIN OF 6/10 AT THIS TIME; VSS; PATIENT POSITIONED FOR COMFORT; HOB ELEVATED; BEDRAILS UP X1; BED DOWN. ER MD MADE AWARE OF PT STATUS.
--- NOTE | 2019-08-17 17:36 | NUR ---
MAE BISWAS IS EVALUATING PT AT BEDSIDE.
[2019-08-17] MEDS ORDERED: NACL 0.9% 1,000 ML IV ONE (17:45)
[2019-08-17] MEDS ORDERED: FLUORESCEIN OPTH STRIP 1 MG OP ONE (17:45)
[2019-08-17] MEDS ORDERED: TETRACAINE HCL/PF 0.5% OPTH 4 ML BTL OP ONE (17:45)
[2019-08-17 19:04] VITALS: BP 120/78
--- NOTE | 2019-08-17 20:41 | NUR ---
PT LEFT WITHOUT DISCHARGE PAPERS. PT AMB, STEADY GAIT. NO SIGNS OF DISTRESS. NO PAIN REPORTED. ACCOMPANIED BY BOYFRIEND.
== END 2019-08-17 20:41 | disposition home or self-care (01) ==
LOC: MED 15:53
DX: H57.12 Ocular pain, left eye (principal)
CPT/HCPCS: 99283; J7030

== ENCOUNTER 2019-10-05 18:49 | Emergency (ER) | payer MEDICAID ==
[~2019-10-05] VITALS: Ht 165.1 cm; Wt 66.7 kg
[2019-10-05 19:01] VITALS: BP 110/57
--- NOTE | 2019-10-05 19:09 | NUR ---
Triage completed, pt ambulated with steady gait to ER waiting room.
--- NOTE | 2019-10-05 19:23 | NUR ---
PT TAKEN TO BED 9.
[2019-10-05 19:49] VITALS: BP 110/57
--- NOTE | 2019-10-05 19:49 | NUR ---
PT COMPLETE ASSESSMENT COMPLETE. PT SEATED UPRIGHT IN BED. BEDRAIL X1 UP. WILL CONTINUE TO MONITOR.
--- NOTE | 2019-10-05 20:23 | NUR ---
Patient discharged with v/s stable. Written and verbal after care instructions given and explained. Patient alert, oriented and verbalized understanding of instructions. Ambulatory with steady gait. All questions addressed prior to discharge. ID band removed. Patient advised to follow up with PMD. Rx of EPI-PEN given. Patient educated on indication of medication including possible reaction and side effects. Opportunity to ask questions provided and answered.
== END 2019-10-05 20:23 | disposition home or self-care (01) ==
LOC: MED 18:49
DX: T78.1XXA Other adverse food reactions, not elsewhere classified, initial encounter (principal); X58.XXXA Exposure to other specified factors, initial encounter; J45.909 Unspecified asthma, uncomplicated; Z88.8 Allergy status to other drugs, medicaments and biological substances
CPT/HCPCS: 99282

== ENCOUNTER 2019-10-10 19:23 | Emergency (ER) | payer MEDICAID ==
[~2019-10-10] VITALS: Ht 165.1 cm; Wt 64.4 kg
[2019-10-10 19:47] VITALS: BP 129/75
--- NOTE | 2019-10-10 19:55 | NUR ---
PT AMBULAED TO THE LOBBY TO A/W BED
--- NOTE | 2019-10-10 20:10 | NUR ---
PT AMBULATED TO CHAIR C.
--- NOTE | 2019-10-10 20:24 | NUR ---
19/F C/O GEN BODY NUMBNESS THAT STARTED AT WORK TODAY, STATES NOW THERE IS NUMBNESS AND PAIN IN BL FEET RADIATING UP. STATES SHE CAN'T FEEL HER FEET. STATES SHE HAS BEEN STRESSED IN GENERAL RECENTLY. PT ABLE TO CORRECTLY IDENTIFY SHARP END Q TIP ON BOTH FEET WITH EYES CLOSED. MEDHX- ANXIETY, ASTHMA, COLITIS ALLERGY- MILK/DAIRY
--- NOTE | 2019-10-10 20:55 | NUR ---
MAE MULLER EVALUATING PT
[2019-10-10 21:08] LABS: APPEARANCE,URINE CLEAR (CLEAR); BILIRUBIN,URINE NEGATIVE (NEGATIVE); BLOOD, URINE TRACE-I (NEGATIVE); COLOR,URINE YELLOW (YELLOW); LEUKOCYTE ESTERASE ,URINE NEGATIVE (NEGATIVE); NITRITE, URINE NEGATIVE (NEGATIVE); UGLUCOSE NEGATIVE (NEGATIVE)
[2019-10-10 21:20] LABS: RBC,URINE 0-5 /HPF (0-5); WBC,URINE 0 /HPF (0-5)
--- NOTE | 2019-10-10 21:23 | NUR ---
AGILE PROJECT MANAGER AT SIDE
[2019-10-10 21:32] LABS: BARBITURATE, URINE NEG. ng/ml (NEG <=200); BENZODIAZEPINE, URINE NEG. ng/mL (NEG <=200); CANNABINOID, URINE NEG. ng/mL (NEG <=50); COCAINE, URINE NEG. ng/mL (NEG <=300); OPIATE, URINE NEG. ng/mL (NEG <=2000); PHENCYCLIDINE SCREEN,URINE NEG. ng/mL (NEG <=25)
[2019-10-10 21:55] LABS: BASOPHILS # (AUTO) 0.1 K/uL (0.00-0.22); BASOPHILS % (AUTO) 0.8 % (0.0-2.0); EOSINOPHILS # (AUTO) 0.1 K/uL (0-0.4); EOSINOPHILS % (AUTO) 1.5 % (0.0-4.0); HEMATOCRIT 42.5 % (36-48); HEMOGLOBIN 14.1 g/dL (12.0-16.0); LYMPHOCYTES % (AUTO) 39.4 % (20.5-51.1); MEAN CORPUSCULAR HEMOGLOBIN 29 pg (27-31); MEAN CORPUSCULAR HGB CONC 33 g/dL (33-37); MEAN CORPUSCULAR VOLUME 88.1 fL (80-94); MONOCYTES # (AUTO) 0.6 K/uL (0.8-1.0); MONOCYTES % (AUTO) 8.5 % (1.7-9.3); NEUTROPHILS # (AUTO) 3.8 K/uL (1.8-7.7); NEUTROPHILS % (AUTO) 49.8 % (42.2-75.2); PLATELET COUNT (AUTO) 365 K/uL (140-450); RED BLOOD CELL COUNT(AUTO) 4.83 MIL/uL (4.20-5.40); RED CELL DISTRIBUTION WIDTH 14.1 % (11.6-13.7); WHITE BLOOD COUNT (AUTO) 7.6 K/uL (4.8-10.8)
[2019-10-10 22:08] LABS: ANION GAP 12.3 (8-16); CARBON DIOXIDE 26.1 mmol/L (21-32); CREATININE 0.7 mg/dL (0.6-1.3); POTASSIUM 3.4 mmol/L (3.5-5.1)
[2019-10-10] MEDS ORDERED: DIAZEPAM 5 MG TAB PO ONE (22:45)
[2019-10-10] MEDS: HYDROcodone/APAP 5/325 MG 1 TAB TAB PO ONE (22:53)
--- NOTE | 2019-10-10 23:50 | NUR ---
DCRPatient discharged with v/s stable. Written and verbal after care instructions given and explained. Patient alert, oriented and verbalized understanding of instructions. Ambulatory with steady gait. All questions addressed prior to discharge. ID band removed. Patient advised to follow up with PMD. Rx of FLEXERIL AND NORCO given. Patient educated on indication of medication including possible reaction and side effects. Opportunity to ask questions provided and answered. Addendum: 10/10/19 at 2354 by SAYRA Patient discharged with v/s stable. Written and verbal after care instructions given and explained. Patient alert, oriented and verbalized understanding of instructions. Ambulatory with steady gait. All questions addressed prior to discharge. ID band removed. Patient advised to follow up with PMD. Rx of FLEXERIL AND NORCO given. Patient educated on indication of medication including possible reaction and side effects. Opportunity to ask questions provided and answered.
[2019-10-10 23:53] VITALS: BP 112/65
== END 2019-10-10 23:50 | disposition home or self-care (01) ==
LOC: MED 19:23
DX: R20.0 Anesthesia of skin (principal); J45.909 Unspecified asthma, uncomplicated; Z98.890 Other specified postprocedural states; Z88.8 Allergy status to other drugs, medicaments and biological substances
CPT/HCPCS: 36415; 80048; 80305; 81001; 85025; 99283

== ENCOUNTER 2019-11-21 21:13 | Emergency (ER) | payer MEDICAID ==
[~2019-11-21] VITALS: Ht 165.1 cm; Wt 62.6 kg
[2019-11-21 21:14] VITALS: BP 126/82
[2019-11-21] MEDS: diphenhydrAMINE 50 MG/ML VIAL IM ONE (22:06)
[2019-11-21] MEDS: methylPREDNISolone SS 125 MG/2 ML VIAL IM ONE (22:07)
[2019-11-21 23:37] VITALS: BP 126/82
== END 2019-11-21 23:37 | disposition home or self-care (01) ==
LOC: MED 21:13
DX: T78.1XXA Other adverse food reactions, not elsewhere classified, initial encounter (principal); R13.0 Aphagia; J45.909 Unspecified asthma, uncomplicated; Z88.8 Allergy status to other drugs, medicaments and biological substances
CPT/HCPCS: 96372; 99284; J1200; J2930

== ENCOUNTER 2020-05-13 16:44 | Emergency (ER) | payer MEDICAID ==
[~2020-05-13] VITALS: Ht 165.1 cm; Wt 57.6 kg
--- NOTE | 2020-05-13 16:51 | NUR ---
Patient ambulated to bed 7. RN evaluating patient at bedside.
[2020-05-13 16:54] VITALS: BP 108/78
--- NOTE | 2020-05-13 17:01 | NUR ---
20 y/o female from home c/o possible allergic reaction, states swelling to tongue and chest discomfort s/p eating. Used epi pen approx 30 min ago. Denies sob. States 7/10 pressure to chest. RR even and unlabored. Does not appear to be in any distress. Awake and alert. HOB elevated. Positioned for comfort. VSS medhx: MS, asthma allergies: dairy
--- NOTE | 2020-05-13 17:05 | NUR ---
Dr. Jacobo is evaluating the patient at bedside.
[2020-05-13] MEDS ORDERED: NACL 0.9% 1,000 ML IV ONE (17:10)
[2020-05-13] MEDS ORDERED: diphenhydrAMINE 50 MG/ML VIAL IVP ONE (17:10)
[2020-05-13] MEDS ORDERED: ALBUTEROL 0.083% 2.5 MG/3 ML NEBU INH ONE (17:10)
[2020-05-13] MEDS ORDERED: methylPREDNISolone SS 125 MG/2 ML VIAL IVP ONE (17:10)
[2020-05-13] MEDS ORDERED: FAMOTIDINE 20 MG/2 ML VIAL IVP ONE (17:10)
[2020-05-13 17:56] LABS: BASOPHILS # (AUTO) 0.1 K/uL (0.00-0.22); BASOPHILS % (AUTO) 0.9 % (0.0-2.0); EOSINOPHILS # (AUTO) 0.1 K/uL (0-0.4); EOSINOPHILS % (AUTO) 1.6 % (0.0-4.0); LYMPHOCYTES # (AUTO) 2.3 K/uL (2.5-16.5); LYMPHOCYTES % (AUTO) 28.2 % (20.5-51.1); MEAN CORPUSCULAR HEMOGLOBIN 30 pg (27-31); MEAN CORPUSCULAR HGB CONC 34 g/dL (33-37); MEAN CORPUSCULAR VOLUME 88.2 fL (80-94); MONOCYTES # (AUTO) 0.6 K/uL (0.8-1.0); MONOCYTES % (AUTO) 7.9 % (1.7-9.3); NEUTROPHILS % (AUTO) 61.4 % (42.2-75.2); PLATELET COUNT (AUTO) 406 K/uL (140-450); RED CELL DISTRIBUTION WIDTH 13.9 % (11.6-13.7); WHITE BLOOD COUNT (AUTO) 8.2 K/uL (4.8-10.8)
[2020-05-13 18:10] LABS: ALBUMIN 3.3 g/dL (3.4-5.0); ANION GAP 13.7 (8-16); CARBON DIOXIDE 25.6 mmol/L (21-32); CREATININE 0.7 mg/dL (0.6-1.3); POTASSIUM 3.3 mmol/L (3.5-5.1); TOTAL BILIRUBIN 0.3 mg/dL (0.0-1.0)
[2020-05-13 18:58] VITALS: BP 111/76
--- NOTE | 2020-05-13 18:58 | NUR ---
Patient discharged with v/s stable. Written and verbal after care instructions given and explained. Patient alert, oriented and verbalized understanding of instructions. Ambulatory with steady gait. All questions addressed prior to discharge. ID band removed. Patient advised to follow up with PMD. Rx of prednisone,epipen,benadryl given. Patient educated on indication of medication including possible reaction and side effects. Opportunity to ask questions provided and answered.
== END 2020-05-13 18:58 | disposition home or self-care (01) ==
LOC: MED 16:44
DX: T78.1XXA Other adverse food reactions, not elsewhere classified, initial encounter (principal); J45.909 Unspecified asthma, uncomplicated; F32.9 Major depressive disorder, single episode, unspecified; F41.9 Anxiety disorder, unspecified; F15.90 Other stimulant use, unspecified, uncomplicated; Z88.8 Allergy status to other drugs, medicaments and biological substances; X58.XXXA Exposure to other specified factors, initial encounter
CPT/HCPCS: 36415; 71045; 80053; 84484; 85025; 94640; 96361; 96374; 96375; 99284; J1200; J2930; J3490; J7030; J7613

== ENCOUNTER 2020-05-14 03:58 | Emergency (ER) | payer MEDICAID ==
[~2020-05-14] VITALS: Ht 165.1 cm; Wt 56.7 kg
[2020-05-14 04:04] VITALS: BP 124/96
[2020-05-14] MEDS ORDERED: HALOPERIDOL IM 5 MG/ML VIAL IM ONE (04:40)
--- NOTE | 2020-05-14 04:40 | NUR ---
MD KIMBLE AT BEDSIDE
--- NOTE | 2020-05-14 04:44 | NUR ---
Note ilianaone in EDM - 05/14/20 at 0501 by [email or web address] PT WAS SEEN HERE YESTERDAY AFTER HAVING ANY ALLERGIC REACTION TO FOOD, AT HOME SHE INFECTED HERSELF WITH AN EPI PEN TO HELP WITH SYMPTOMS AND FOLLOWED UP BY COMING TO ER. PT NOW COMING IN DUE TO NOT BEING ABLE TO SLEEP, FEELING SHAKEY AND ANXIOUS, HEART RACING, AND MIDSTERNAL CHEST TIGHTNESS (03/12). A/O X 4. DENIES SOB, AFEBRILE, NO N/V/D. BED IN LOWEST POSITION AND SIDERAIL UP X 1. PT ON BEDSIDE MONITOR. NKDA HX - ASTHMA
--- NOTE | 2020-05-14 04:44 | NUR ---
PT WAS SEEN HERE YESTERDAY AFTER HAVING AN ALLERGIC REACTION TO FOOD, AT HOME SHE INJECTED HERSELF WITH AN EPI PEN TO HELP WITH SYMPTOMS AND FOLLOWED UP BY COMING TO ER. PT NOW COMING IN DUE TO NOT BEING ABLE TO SLEEP, FEELING SHAKEY AND ANXIOUS, HEART RACING, AND MIDSTERNAL CHEST TIGHTNESS (03/12). A/O X 4. DENIES SOB, AFEBRILE, NO N/V/D. BED IN LOWEST POSITION AND SIDERAIL UP X 1. PT ON BEDSIDE MONITOR. NKDA HX - ASTHMA
[2020-05-14 04:54] VITALS: BP 124/86
== END 2020-05-14 05:00 | disposition home or self-care (01) ==
LOC: MED 03:58
DX: G47.00 Insomnia, unspecified (principal); F12.90 Cannabis use, unspecified, uncomplicated; J45.909 Unspecified asthma, uncomplicated; Z98.890 Other specified postprocedural states; Z88.8 Allergy status to other drugs, medicaments and biological substances
CPT/HCPCS: 96372; 99283; J1630

== ENCOUNTER 2020-06-25 19:00 | Emergency (ER) | payer MEDICAID ==
[~2020-06-25] VITALS: Ht 165.1 cm; Wt 57.6 kg
[2020-06-25 19:05] VITALS: BP 119/72
--- NOTE | 2020-06-25 19:10 | NUR ---
PT TAKEN TO BED 8
--- NOTE | 2020-06-25 19:36 | NUR ---
MAE HERRERA WITH PT
--- NOTE | 2020-06-25 19:36 | NUR ---
PT COMING IN TODAY DUE TO MS FLARE UP. PT WAS DX 2 MONTHS AGO BUT HAS NOT SEEN A DOCTOR REGARDING TREATMENT FOR MS OF YET. SHE'S C/O BURNING, TINGLING, AND SHARP PAIN TO HANDS, FEET, AND CALVES. RATES PAIN 04/11. DENIES N/V/D. AFEBRILE, NO SOB. BED IN LOWEST POSITION AND SIDERAIL UP X 1. ALLERGY - ATIVAN HX - ULCERTIVE COLITIS, ASTHMA, MS
[2020-06-25 19:54] LABS: BASOPHILS # (AUTO) 0.1 K/uL (0.00-0.22); BASOPHILS % (AUTO) 1.1 % (0.0-2.0); EOSINOPHILS # (AUTO) 0.1 K/uL (0-0.4); EOSINOPHILS % (AUTO) 1.8 % (0.0-4.0); HEMATOCRIT 42.9 % (36-48); HEMOGLOBIN 14.4 g/dL (12.0-16.0); LYMPHOCYTES # (AUTO) 2.1 K/uL (2.5-16.5); LYMPHOCYTES % (AUTO) 30.1 % (20.5-51.1); MEAN CORPUSCULAR HEMOGLOBIN 30 pg (27-31); MEAN CORPUSCULAR HGB CONC 34 g/dL (33-37); MEAN CORPUSCULAR VOLUME 89.6 fL (80-94); MONOCYTES # (AUTO) 0.5 K/uL (0.8-1.0); MONOCYTES % (AUTO) 7.6 % (1.7-9.3); NEUTROPHILS % (AUTO) 59.4 % (42.2-75.2); PLATELET COUNT (AUTO) 341 K/uL (140-450); RED BLOOD CELL COUNT(AUTO) 4.79 MIL/uL (4.20-5.40); WHITE BLOOD COUNT (AUTO) 6.8 K/uL (4.8-10.8)
[2020-06-25] MEDS: KETOROLAC 30 MG/ML VIAL IM ONE (20:48)
[2020-06-25 20:51] LABS: CARBON DIOXIDE 27.1 mmol/L (21-32); CREATININE 0.8 mg/dL (0.6-1.3); POTASSIUM 4.1 mmol/L (3.5-5.1); TOTAL BILIRUBIN 0.3 mg/dL (0.0-1.0)
[2020-06-25 21:34] VITALS: BP 115/73
--- NOTE | 2020-06-25 21:34 | NUR ---
Patient discharged with v/s stable. Written and verbal after care instructions given and explained. Patient alert, oriented and verbalized understanding of instructions. Ambulatory with steady gait. All questions addressed prior to discharge. ID band removed. Patient advised to follow up with PMD. Rx of CEPHALEXIN AND PYRIDIUM given. Patient educated on indication of medication including possible reaction and side effects. Opportunity to ask questions provided and answered.
== END 2020-06-25 21:34 | disposition home or self-care (01) ==
LOC: MED 19:00
DX: R20.2 Paresthesia of skin (principal); N39.0 Urinary tract infection, site not specified; J45.909 Unspecified asthma, uncomplicated; Z88.8 Allergy status to other drugs, medicaments and biological substances
CPT/HCPCS: 36415; 80053; 81002; 81025; 85025; 96372; 99283; J1885

== ENCOUNTER 2020-07-02 11:10 | Emergency (ER) | payer MEDICAID ==
[~2020-07-02] VITALS: Ht 165.1 cm; Wt 57.6 kg
[2020-07-02 11:24] VITALS: BP 151/97
[2020-07-02] MEDS ORDERED: EPINEPHrine 1:1000 - 1 MG/ML AMP IM STA (11:27)
[2020-07-02] MEDS ORDERED: FAMOTIDINE 20 MG/2 ML VIAL IVP STA (11:27)
[2020-07-02] MEDS ORDERED: methylPREDNISolone SS 125 MG/2 ML VIAL IVP STA (11:27)
[2020-07-02 12:59] LABS: BASOPHILS % (AUTO) 0.2 % (0.0-2.0); EOSINOPHILS # (AUTO) 0.1 K/uL (0-0.4); HEMOGLOBIN 15.6 g/dL (12.0-16.0); LYMPHOCYTES # (AUTO) 3.9 K/uL (2.5-16.5); LYMPHOCYTES % (AUTO) 41.3 % (20.5-51.1); MEAN CORPUSCULAR HEMOGLOBIN 31 pg (27-31); MEAN CORPUSCULAR HGB CONC 34 g/dL (33-37); MEAN CORPUSCULAR VOLUME 89.7 fL (80-94); MONOCYTES # (AUTO) 0.5 K/uL (0.8-1.0); MONOCYTES % (AUTO) 5.8 % (1.7-9.3); NEUTROPHILS # (AUTO) 4.9 K/uL (1.8-7.7); NEUTROPHILS % (AUTO) 51.7 % (42.2-75.2); PLATELET COUNT (AUTO) 448 K/uL (140-450); RED BLOOD CELL COUNT(AUTO) 5.13 MIL/uL (4.20-5.40); RED CELL DISTRIBUTION WIDTH 13.5 % (11.6-13.7); WHITE BLOOD COUNT (AUTO) 9.5 K/uL (4.8-10.8)
[2020-07-02 13:26] LABS: ALBUMIN 3.6 g/dL (3.4-5.0); ANION GAP 16.2 (8-16); CARBON DIOXIDE 25.6 mmol/L (21-32); CREATININE 0.9 mg/dL (0.6-1.3); POTASSIUM 3.8 mmol/L (3.5-5.1); TOTAL BILIRUBIN 0.4 mg/dL (0.0-1.0)
[2020-07-02] MEDS: KETOROLAC 15 MG/ML VIAL IVP STA ×2 (14:24→14:33)
[2020-07-02 14:39] VITALS: BP 118/70
== END 2020-07-02 14:40 | disposition home or self-care (01) ==
LOC: MED 11:10
DX: T78.2XXA Anaphylactic shock, unspecified, initial encounter (principal); J45.909 Unspecified asthma, uncomplicated; F41.9 Anxiety disorder, unspecified; Z88.8 Allergy status to other drugs, medicaments and biological substances
CPT/HCPCS: 36415; 71045; 80053; 84484; 85025; 96372; 96374; 96375; 99291; J0171; J1885; J2930; J3490; Q0092; Q0163; 99285

== ENCOUNTER 2020-07-27 15:01 | Emergency (ER) | payer MEDICAID ==
[~2020-07-27] VITALS: Ht 165.1 cm; Wt 56.7 kg
[2020-07-27 15:09] VITALS: BP 120/88
--- NOTE | 2020-07-27 15:30 | NUR ---
PATIENT PRESENTS TO ED WITH C/O ALLERGIC RXN 4 DAYS AGO . DENIES N/V/D; SKIN IS PINK/WARM/DRY; AAOX4 WITH EVEN AND STEADY GAIT; LUNGS CLEAR BL; HR EVEN AND REGULAR; PT DENIES ANY FEVER, CP, SOB, OR COUGH AT THIS TIME; PATIENT STATES PAIN OF 5/10 AT THIS TIME; VSS; PATIENT POSITIONED FOR COMFORT; HOB ELEVATED; BEDRAILS UP X2; BED DOWN. ER MD MADE AWARE OF PT STATUS.
[2020-07-27 15:40] VITALS: BP 120/88
== END 2020-07-27 15:42 | disposition home or self-care (01) ==
LOC: MED 15:01
DX: T78.40XA Allergy, unspecified, initial encounter (principal); J45.909 Unspecified asthma, uncomplicated; Z88.8 Allergy status to other drugs, medicaments and biological substances; X58.XXXA Exposure to other specified factors, initial encounter
CPT/HCPCS: 99281

== ENCOUNTER 2020-07-30 12:03 | Emergency (ER) | payer MEDICAID ==
[~2020-07-30] VITALS: Ht 165.1 cm; Wt 56.7 kg
[2020-07-30 12:13] VITALS: BP 130/84
[2020-07-30 13:28] VITALS: BP 122/78
== END 2020-07-30 13:28 | disposition home or self-care (01) ==
LOC: MED 12:03
DX: K14.0 Glossitis (principal); J45.909 Unspecified asthma, uncomplicated; Z88.8 Allergy status to other drugs, medicaments and biological substances
CPT/HCPCS: 99283

== ENCOUNTER 2020-08-06 09:24 | Emergency (ER) | payer MEDICAID ==
[~2020-08-06] VITALS: Ht 167.6 cm; Wt 56.7 kg
[2020-08-06 09:26] VITALS: BP 127/92
--- NOTE | 2020-08-06 09:30 | NUR ---
pt ambulated to bathroom, steady gait.
--- NOTE | 2020-08-06 09:32 | NUR ---
Dr. Cheema is evaluating the patient at bedside.
--- NOTE | 2020-08-06 09:32 | NUR ---
Patient ambulated to bed 11. RN evaluating patient at bedside.
--- NOTE | 2020-08-06 09:33 | NUR ---
Pt placed on 3 lead ecg and pulse ox.
--- NOTE | 2020-08-06 09:34 | NUR ---
20 Y/F PRESENTS TO ED C/O ALLERGIC REACTION W/ SWOLLEN TONGUE FOR THE PAST 10 DAYS. PT CANNOT INDENTIFY THE ALLERGEN, REPORTS BEING ALLERGIC TO DAIRY, BUT HAS NOT CONSUMED ANY DAIRY. PT TOOK BENADRYL AND PREDNISONE THIS MORNING W/O RELIEF. DNEIES COUGH, SOB, FEVER, OR SICK CONTACTS. SWELLING NOTED ON TONGUE. NO ORAL EDEMA NOTED, 02 SAT 97 ON RA. RR EVEN AND UNLABORED. PMH: ASTHMA, MS MEDS: BENADRYL, PREDNISONE, PEPCID
--- NOTE | 2020-08-06 09:49 | NUR ---
lab at bedside.
[2020-08-06 10:00] LABS: BASOPHILS # (AUTO) 0.1 K/uL (0.00-0.22); BASOPHILS % (AUTO) 0.4 % (0.0-2.0); EOSINOPHILS % (AUTO) 0.3 % (0.0-4.0); HEMATOCRIT 39.4 % (36-48); HEMOGLOBIN 13.3 g/dL (12.0-16.0); LYMPHOCYTES # (AUTO) 3.2 K/uL (2.5-16.5); LYMPHOCYTES % (AUTO) 23.7 % (20.5-51.1); MEAN CORPUSCULAR HEMOGLOBIN 29 pg (27-31); MEAN CORPUSCULAR HGB CONC 34 g/dL (33-37); MEAN CORPUSCULAR VOLUME 86.5 fL (80-94); MONOCYTES # (AUTO) 0.6 K/uL (0.8-1.0); MONOCYTES % (AUTO) 4.4 % (1.7-9.3); NEUTROPHILS # (AUTO) 9.5 K/uL (1.8-7.7); NEUTROPHILS % (AUTO) 71.2 % (42.2-75.2); PLATELET COUNT (AUTO) 322 K/uL (140-450); RED BLOOD CELL COUNT(AUTO) 4.56 MIL/uL (4.20-5.40); RED CELL DISTRIBUTION WIDTH 13.4 % (11.6-13.7); WHITE BLOOD COUNT (AUTO) 13.4 K/uL (4.8-10.8)
[2020-08-06 10:17] LABS: ALBUMIN 3.8 g/dL (3.4-5.0); ANION GAP 17.2 (8-16); CARBON DIOXIDE 24.3 mmol/L (21-32); CREATININE 0.9 mg/dL (0.6-1.3); POTASSIUM 3.5 mmol/L (3.5-5.1); TOTAL BILIRUBIN 0.4 mg/dL (0.0-1.0)
--- NOTE | 2020-08-06 10:37 | NUR ---
Dr. Cheema at bedside reevaluating pt.
[2020-08-06 10:51] VITALS: BP 127/92
--- NOTE | 2020-08-06 10:52 | NUR ---
Patient discharged with v/s stable. Written and verbal after care instructions given and explained. Patient alert, oriented and verbalized understanding of instructions. Ambulatory with steady gait. All questions addressed prior to discharge. ID band removed. Patient advised to follow up with PMD. Rx of pepcid and hydroxyzine given. Patient educated on indication of medication including possible reaction and side effects. Opportunity to ask questions provided and answered.
== END 2020-08-06 10:52 | disposition home or self-care (01) ==
LOC: MED 09:24
DX: R55 Syncope and collapse (principal); K14.0 Glossitis; J45.909 Unspecified asthma, uncomplicated; Z88.8 Allergy status to other drugs, medicaments and biological substances
CPT/HCPCS: 36415; 80053; 85025; 93005; 99284

== ENCOUNTER 2020-08-07 10:11 | Emergency (ER) | payer MEDICAID ==
[~2020-08-07] VITALS: Ht 165.1 cm; Wt 56.7 kg
[2020-08-07 10:16] VITALS: BP 114/88
--- NOTE | 2020-08-07 10:20 | NUR ---
PATIENT AMBULATED WITH STEADY GAIT TO BED 9.
--- NOTE | 2020-08-07 11:15 | NUR ---
PATIENT ELOPED FROM FACILITY. DISCHARGE INSTRUCTIONS NOT GIVEN TO PATIENT. DR. WISEMAN NOTIFIED.
== END 2020-08-07 11:15 | disposition left against medical advice (07) ==
LOC: MED 10:11
DX: K14.0 Glossitis (principal); F41.9 Anxiety disorder, unspecified; J45.909 Unspecified asthma, uncomplicated; Z88.8 Allergy status to other drugs, medicaments and biological substances
CPT/HCPCS: 99281

== ENCOUNTER 2020-08-13 06:42 | Emergency (ER) | payer MEDICAID ==
[~2020-08-13] VITALS: Ht 165.1 cm; Wt 58.5 kg
[2020-08-13 06:47] VITALS: BP 132/91
--- NOTE | 2020-08-13 06:54 | NUR ---
pt ambulated to ER bed 4 w/ steady gait.
--- NOTE | 2020-08-13 06:54 | NUR ---
Nicky hernandez in EDM - 08/13/20 at 0654 by MEDSB PT AMBULATED TO ER BED #4
[2020-08-13] MEDS ORDERED: ALBUTEROL HFA MDI 90 MCG/ACTUATION 8 GM INH ONE (07:30)
[2020-08-13] MEDS ORDERED: HYDROXYZINE HYDROCHLORIDE 25 MG TAB PO SCH (07:30)
--- NOTE | 2020-08-13 08:02 | NUR ---
20YO F BIB SELF C/O DIFFICULTY BREATHING X 2 DAYS AFTER CONSUMING DAIRY, WHICH SHE IS ALLERGIC TO. PT ALSO COMPLAINS OF DIFFICULTY SWALLOWING, TONGUE SWELLING AND CHEST TIGHTNESS. MEDICATIONS TAKEN WITHOUT RELIEF- PREDNISONE, EPIPEN, BENADRYL, PEPCID. UPON ASSESMENT, VSS. CLEAR BREATH SOUNDS, NO AUDIBLE WHEEZING NOTED. NO RESPIRATORY DISTRESS NOTED. PT IS RESTING COMFORTABLY IN BED. ERMD MADE AWARE OF PT STATUS. PMH: ASTHMA, MULTIPLE SCLEROSIS MEDS: PREDNISONE, BENADRYL, EPIPEN, PEPCID ALLERGIES: LORAZEPAM, DAIRY
--- NOTE | 2020-08-13 08:07 | NUR ---
RT AT BEDSIDE
[2020-08-13 08:36] VITALS: BP 132/91
--- NOTE | 2020-08-13 08:41 | NUR ---
Patient discharged with v/s stable. Written and verbal after care instructions given and explained. Patient alert, oriented and verbalized understanding of instructions. Ambulatory with steady gait. All questions addressed prior to discharge. ID band removed. Patient advised to follow up with PMD. Rx of ATARAX, EPINEPHRINE, ALBUTEROL INH given. Patient educated on indication of medication including possible reaction and side effects. Opportunity to ask questions provided and answered.
== END 2020-08-13 08:40 | disposition home or self-care (01) ==
LOC: MED 06:42
DX: T78.40XA Allergy, unspecified, initial encounter (principal); J45.909 Unspecified asthma, uncomplicated; Z88.8 Allergy status to other drugs, medicaments and biological substances; X58.XXXA Exposure to other specified factors, initial encounter
CPT/HCPCS: 71045; 81002; 81025; 93005; 99283

== ENCOUNTER 2020-09-21 11:48 | Emergency (ER) | payer MEDICAID ==
[~2020-09-21] VITALS: Ht 165.1 cm; Wt 55.3 kg
[2020-09-21 12:03] VITALS: BP 121/89
[2020-09-21 15:01] VITALS: BP 121/89
== END 2020-09-21 15:02 | disposition home or self-care (01) ==
LOC: MED 11:48
DX: R00.2 Palpitations (principal); J45.909 Unspecified asthma, uncomplicated; Z88.8 Allergy status to other drugs, medicaments and biological substances; Z91.011 Allergy to milk products
CPT/HCPCS: 81025; 93005; 99283

== ENCOUNTER 2020-10-04 19:34 | Emergency (ER) | payer MEDICAID ==
[~2020-10-04] VITALS: Ht 165.1 cm; Wt 59.0 kg
--- NOTE | 2020-10-04 19:45 | NUR ---
CALLED PATIENT BACK TO TRIAGE, NO RESPONSE.
[2020-10-04 19:55] VITALS: BP 134/95
--- NOTE | 2020-10-04 20:00 | NUR ---
PATIENT AMBUALTED TO LOBBY WITH STEADY GAIT.
--- NOTE | 2020-10-04 20:30 | NUR ---
20 y/o female presented to ED c/o gradual onset of mild rash on skin w/ throat swelling x 3 hrs after eating take out. Pt states she took Prednisone, Pepcid and Bendadryl at 1800 w/ some relief. Pt states she is still having some mild chest tightness and her heart feels like it is racing. No rash or redness noted at this time. RR even and unlabored. S1S2 noted. Cap refil < 3 sec. Pt sitting in chair, no acute distress noted. VSS. pmh: asthma, food allergies, multiple scelerosis ax: lorazepam
--- NOTE | 2020-10-04 20:38 | NUR ---
EKG PERFORMED IN TRIAGE ROOM. EKG READS SINUS RHYTHM @ 73
[2020-10-04] MEDS ORDERED: methylPREDNISolone SS 40 MG in WATER STERILE 1 ML IM ONE (20:55)
[2020-10-04] MEDS ORDERED: diphenhydrAMINE 50 MG/ML VIAL IM ONE (20:55)
[2020-10-04] MEDS ORDERED: WATER STERILE 10 ML MC ONE (20:56)
[2020-10-04] MEDS ORDERED: methylPREDNISolone SS 40 MG/ML VIAL ONE (20:56)
[2020-10-04 21:35] VITALS: BP 132/90
== END 2020-10-04 21:35 | disposition home or self-care (01) ==
LOC: MED 19:34
DX: T78.40XA Allergy, unspecified, initial encounter (principal); J45.909 Unspecified asthma, uncomplicated; Z88.8 Allergy status to other drugs, medicaments and biological substances; X58.XXXA Exposure to other specified factors, initial encounter
CPT/HCPCS: 93005; 96372; 99284; J1200; J2920

== ENCOUNTER 2020-10-05 20:19 | Emergency (ER) | payer MEDICAID ==
[~2020-10-05] VITALS: Ht 165.1 cm; Wt 55.8 kg
[2020-10-05 20:26] VITALS: BP 126/90
--- NOTE | 2020-10-05 20:27 | NUR ---
TO LOBBY A/W BED AMBULATORY
--- NOTE | 2020-10-05 21:00 | NUR ---
SEEN AND EXAMINED BY FATOU WITH ORDERS AND CARRIED OUT.
--- NOTE | 2020-10-05 21:50 | NUR ---
RESULT BACK AND NOTED BY ERMD AND FOR D/C
[2020-10-05 22:20] VITALS: BP 126/90
--- NOTE | 2020-10-05 22:20 | NUR ---
Patient discharged with v/s stable. Written and verbal after care instructions given and explained. Patient alert, oriented and verbalized understanding of instructions. Ambulatory with steady gait. All questions addressed prior to discharge. ID band removed. Patient advised to follow up with PMD. Patient educated on indication of medication including possible reaction and side effects. Opportunity to ask questions provided and answered.
== END 2020-10-05 22:20 | disposition home or self-care (01) ==
LOC: MED 20:19
DX: T78.40XA Allergy, unspecified, initial encounter (principal); F41.9 Anxiety disorder, unspecified; J45.909 Unspecified asthma, uncomplicated; Z88.8 Allergy status to other drugs, medicaments and biological substances; X58.XXXA Exposure to other specified factors, initial encounter
CPT/HCPCS: 71045; 99283

== ENCOUNTER 2020-10-09 05:35 | Emergency (ER) | payer MEDICAID ==
[~2020-10-09] VITALS: Ht 165.1 cm; Wt 55.8 kg
[2020-10-09 05:40] VITALS: BP 123/90
--- NOTE | 2020-10-09 05:43 | NUR ---
TO [facility] AMBULATORY
--- NOTE | 2020-10-09 06:00 | NUR ---
ITCHINESS, TINGLING ALL OVER BODY , ABD PAIN S/P EATING [place] AT 2300HOURS.a7O X4. STEADY GAIT. NO DISTRESS NOTED. AIRWAY PATENT AND CLEAR. SPO2 99% RA. RASH ALL OVER BODY. ALLERIGES: LORAZEPAM. PMH: UNKNOWN
--- NOTE | 2020-10-09 06:00 | NUR ---
SEEN AND EXAMINED BY FAOTU .
[2020-10-09] MEDS ORDERED: methylPREDNISolone SS 125 MG in WATER STERILE 2 ML IM ONE (06:05)
[2020-10-09] MEDS ORDERED: methylPREDNISolone SS 125 MG/2 ML VIAL ONE (06:26)
[2020-10-09] MEDS ORDERED: WATER STERILE 10 ML MC ONE (06:26)
[2020-10-09] MEDS ORDERED: diphenhydrAMINE 50 MG CAP PO ONE (06:30)
[2020-10-09 06:47] VITALS: BP 123/90
== END 2020-10-09 06:47 | disposition home or self-care (01) ==
LOC: MED 05:35
DX: L27.2 Dermatitis due to ingested food (principal); J45.909 Unspecified asthma, uncomplicated; Z88.8 Allergy status to other drugs, medicaments and biological substances
CPT/HCPCS: 96372; 99283; J2930; Q0163

== ENCOUNTER 2021-07-08 21:36 | Emergency (ER) | payer MEDICAID ==
[~2021-07-08] VITALS: Ht 165.1 cm; Wt 56.7 kg
[2021-07-08 21:46] VITALS: BP 125/86
--- NOTE | 2021-07-08 21:46 | NUR ---
to chair B ambulatory
--- NOTE | 2021-07-08 22:25 | NUR ---
Dr. Beckwith examining patient.
[2021-07-08] MEDS ORDERED: methylPREDNISolone SS 125 MG in WATER STERILE 2 ML IV ONE (22:35)
[2021-07-08] MEDS ORDERED: FAMOTIDINE 20 MG/2 ML VIAL IVP ONE (22:35)
[2021-07-08] MEDS ORDERED: diphenhydrAMINE 50 MG/ML VIAL IVP ONE (22:35)
[2021-07-08] MEDS ORDERED: WATER STERILE 10 ML MC ONE (23:04)
[2021-07-08] MEDS ORDERED: methylPREDNISolone SS 125 MG/2 ML VIAL ONE (23:04)
[2021-07-08] MEDS: diphenhydrAMINE 50 MG/ML VIAL IM ONE (23:15)
[2021-07-08] MEDS: methylPREDNISolone SS 125 MG in WATER STERILE 2 ML IM ONE (23:16)
[2021-07-08] MEDS: FAMOTIDINE 20 MG TAB PO ONE (23:17)
[2021-07-08] MEDS ORDERED: DIPH25TA53 PO (23:32)
[2021-07-08] MEDS ORDERED: PRED20TA5 PO (23:32)
[2021-07-08 23:42] VITALS: BP 125/86
--- NOTE | 2021-07-08 23:43 | NUR ---
Patient discharged with v/s stable. Written and verbal after care instructions given and explained. Patient alert, oriented and verbalized understanding of instructions. Ambulatory with steady gait. All questions addressed prior to discharge. ID band removed. Patient advised to follow up with PMD. Rx of PREDNISONE AND BENADRYL given. Patient educated on indication of medication including possible reaction and side effects. Opportunity to ask questions provided and answered.
== END 2021-07-08 23:43 | disposition home or self-care (01) ==
LOC: MED 21:36
DX: T78.1XXA Other adverse food reactions, not elsewhere classified, initial encounter (principal); J45.909 Unspecified asthma, uncomplicated; Z79.899 Other long term (current) drug therapy; Z88.8 Allergy status to other drugs, medicaments and biological substances; X58.XXXA Exposure to other specified factors, initial encounter
CPT/HCPCS: 96372; 99284; J1200; J2930; J3490

== ENCOUNTER 2021-12-09 22:14 | Emergency (ER) | payer MEDICAID ==
[~2021-12-09] VITALS: Ht 165.1 cm; Wt 59.0 kg
[~2021-12-09 22:14] MED LIST: DIPH25TA53 PO; PRED20TA5 PO
[2021-12-09 22:15] VITALS: BP 131/87
--- NOTE | 2021-12-09 22:18 | NUR ---
TO LOBBY A/W BED AMBULATORY
--- NOTE | 2021-12-09 23:30 | NUR ---
PATIENT LEFT WITHOUT BEING SEEN BY DR. RODARTE. NO FURTHER CARE PROVIDED FOR PATIENT.
--- NOTE | 2021-12-09 23:30 | NUR ---
PER GARRETT CASTELLANOS, CALLED FOR PT IN LOBBY. NO ANSWER. PT LEFT WITHOUT BEING SEEN.
== END 2021-12-09 23:30 | disposition left against medical advice (07) ==
LOC: MED 22:14
DX: R06.00 Dyspnea, unspecified (principal); F41.9 Anxiety disorder, unspecified; Z53.21 Procedure and treatment not carried out due to patient leaving prior to being seen by health care provider

== ENCOUNTER 2023-09-07 11:08 | Emergency (ER) | payer MEDICARE, MEDICAID ==
[~2023-09-07] VITALS: Ht 165.1 cm; Wt 56.7 kg
[2023-09-07 11:38] VITALS: BP 105/73; PULSE 74; RESP 20; TEMP 98.4; O2SAT 100
[2023-09-07] MEDS ORDERED: ONDANSETRON 4 MG ODT PO ONE (12:00)
[2023-09-07] MEDS ORDERED: KETOROLAC 30 MG/ML VIAL IM ONE (12:00)
[2023-09-07 12:31] LABS: BASOPHILS # (AUTO) 0.1 K/uL (0.00-0.22); BASOPHILS % (AUTO) 0.9 % (0.0-2.0); EOSINOPHILS # (AUTO) 0.1 K/uL (0-0.4); HEMATOCRIT 40.7 % (36-48); HEMOGLOBIN 13.6 g/dL (12.0-16.0); LYMPHOCYTES # (AUTO) 0.8 K/uL (2.5-16.5); LYMPHOCYTES % (AUTO) 9.6 % (20.5-51.1); MEAN CORPUSCULAR HEMOGLOBIN 29 pg (27-31); MEAN CORPUSCULAR HGB CONC 34 g/dL (33-37); MEAN CORPUSCULAR VOLUME 86.7 fL (80-94); MONOCYTES # (AUTO) 0.4 K/uL (0.8-1.0); MONOCYTES % (AUTO) 4.4 % (1.7-9.3); NEUTROPHILS # (AUTO) 7.3 K/uL (1.8-7.7); NEUTROPHILS % (AUTO) 84.1 % (42.2-75.2); PLATELET COUNT (AUTO) 245 K/uL (140-450); RED CELL DISTRIBUTION WIDTH 14.8 % (11.6-13.7); WHITE BLOOD COUNT (AUTO) 8.7 K/uL (4.8-10.8)
[2023-09-07 12:46] LABS: ANION GAP 11.7 (8-16); CALCIUM 8.6 mg/dL (8.5-10.1); CARBON DIOXIDE 23.6 mmol/L (21-32); CREATININE 0.8 mg/dL (0.6-1.3); POTASSIUM 4.3 mmol/L (3.5-5.1)
[2023-09-07 12:50] LABS: BILIRUBIN,DIRECT 0.1 mg/dL (0.0-0.3); TOTAL BILIRUBIN 0.3 mg/dL (0.0-1.0); TOTAL PROTEIN, SERUM 7.1 g/dL (6.4-8.2)
[2023-09-07 14:58] LABS: APPEARANCE,URINE CLEAR (CLEAR); BILIRUBIN,URINE NEGATIVE (NEGATIVE); BLOOD, URINE TRACE-I (NEGATIVE); COLOR,URINE YELLOW (YELLOW); LEUKOCYTE ESTERASE ,URINE NEGATIVE (NEGATIVE); NITRITE, URINE NEGATIVE (NEGATIVE); PH,URINE 6.5 (5.0-9.0); PROTEIN,URINE NEGATIVE (NEGATIVE); UGLUCOSE NEGATIVE (NEGATIVE); UROBILINOGEN,URINE 0.2 EU/dL (0.2 - 1)
[2023-09-07 15:02] LABS: BACTERIA,URINE None Seen /HPF (None Seen); MUCUS,URINE 1+ /LPF (None Seen); RBC,URINE 0-5 /HPF (0-5); SQUAMOUS EPITHELIAL CELL,UR 20-50 /LPF (0-3 (FEW)); TRICHOMONAS,URINE None Seen /HPF (None Seen); WBC,URINE 0-5 /HPF (0-5); YEAST,URINE None Seen /HPF (None Seen)
[2023-09-07] MEDS ORDERED: PEG4000P3 PO ×2 (15:20→15:32)
[2023-09-07] MEDS ORDERED: IBUP-2213 PO ×2 (15:20→15:32)
[2023-09-07 15:32] VITALS: BP 105/73; PULSE 74; RESP 20; TEMP 98.4; O2SAT 100
== END 2023-09-07 15:32 | disposition home or self-care (01) ==
LOC: MED 11:08
DX: K59.00 Constipation, unspecified (principal); R11.2 Nausea with vomiting, unspecified; R31.9 Hematuria, unspecified; J45.909 Unspecified asthma, uncomplicated; Z79.899 Other long term (current) drug therapy; Z79.1 Long term (current) use of non-steroidal anti-inflammatories (NSAID); Z88.8 Allergy status to other drugs, medicaments and biological substances
CPT/HCPCS: 36415; 74018; 80048; 80076; 81001; 81025; 83690; 85025; 87491; 96372; 99284; J1885; Q0162